=== PATIENT | female | born 1985 | race Caucasian/White ===

== ENCOUNTER 2016-09-21 14:00 | Emergency (ER) | payer MEDICAID ==
[~2016-09-21] VITALS: Ht 152.4 cm; Wt 91.6 kg
--- NOTE | 2016-09-21 14:04 | NUR ---
Patient ambulated to bed 03.
[2016-09-21 14:08] VITALS: BP 145/99
--- NOTE | 2016-09-21 14:20 | NUR ---
Dr. Funez evaluating patient at bedside.
[2016-09-21] MEDS ORDERED: NACL 0.9% 1,000 ML IV SCH (14:26)
[2016-09-21] MEDS ORDERED: ONDANSETRON 4 MG/2 ML VIAL IVP ONE (14:30)
[2016-09-21] MEDS ORDERED: MORPHINE SULFATE 4 MG/ML SYR IVP ONE (14:30)
--- NOTE | 2016-09-21 14:45 | NUR ---
PATIENT PRESENTS TO ED WITH C/O ABD PAIN X 1 WEEK, PT. ADMITTED TO [facility] 08/26/16 FOR ABD PAIN AND REFERRED TO [facility], PT. STATES THE PAIN GOT WORSE AND SHES NOT GOING TO [facility] UNTIL THIS SUNDAY; DENIES N/V/D; SKIN IS PINK/WARM/DRY; AAOX4 WITH EVEN AND STEADY GAIT; LUNGS CLEAR BL; HR EVEN AND REGULAR; PT DENIES ANY FEVER, CP, SOB, OR COUGH AT THIS TIME; PATIENT STATES PAIN OF 9/10 AT THIS TIME; VSS; PATIENT POSITIONED FOR COMFORT; HOB ELEVATED; BEDRAILS UP X2; BED DOWN. ER MD MADE AWARE OF PT STATUS.
--- NOTE | 2016-09-21 15:13 | NUR ---
AAO AMBULATES TO THE RESTROOM FOR URINE SAMPLE
--- NOTE | 2016-09-21 16:22 | NUR ---
Patient to CT via wheelchair per tech.
--- NOTE | 2016-09-21 16:22 | NUR ---
AAO TAKEN TO CT BY NAILER HAND VIA WHEEL CHAIR
--- NOTE | 2016-09-21 16:49 | NUR ---
AAO PT TAKEN TO CT BY BALL WORKER VIA WHEEL CHAIR
[2016-09-21 17:55] VITALS: BP 147/86
--- NOTE | 2016-09-21 17:55 | NUR ---
Patient discharged with v/s stable. Written and verbal after care instructions given and explained.Patient alert, oriented and verbalized understanding of instructions. Ambulatory with steady gait. All questions addressed prior to discharge. ID band removed. Patient advised to follow up with PMD. Rx of NORCO ZOFRAN given. Patient educated on indication of medication including possible reaction and side effects. Opportunity to ask questions provided and answered.
[2017-01-08] MEDS ORDERED: SIMVASTATIN20 M1 PO (11:31)
[2017-01-08] MEDS ORDERED: NIFEDIPINE30 M1 PO (11:31)
[2017-01-08] MEDS ORDERED: FLOMAX0.4 MG PO (11:31)
[2017-01-08] MEDS ORDERED: MIRAPEX0.25 MG PO (11:31)
[2017-01-08] MEDS ORDERED: MOBIC15 MG PO (11:31)
[2017-01-08] MEDS ORDERED: METFORMIN HCL500 MG PO (11:31)
[2017-01-08] MEDS ORDERED: GABAPENTIN300 M3 PO (11:31)
[2017-01-10] MEDS ORDERED: AMOXICILLIN500 MG PO (07:01)
[2017-01-10] MEDS ORDERED: BIAXIN500 MG PO (07:08)
[2017-01-10] MEDS ORDERED: PEPTO BISMOL PO ×2 (08:38→10:47)
[2017-01-10] MEDS ORDERED: TETRACYCLINE PO (08:41)
[2017-01-10] MEDS ORDERED: FLAGYL500 M1 PO (08:42)
[2017-01-10] MEDS ORDERED: OMEPRAZOLE20 M3 PO (08:43)
[2017-01-10] MEDS ORDERED: ELAVIL25 M1 PO (08:48)
[2017-01-10] MEDS ORDERED: ATORVASTATIN CA20 MG PO (08:48)
[2017-01-10] MEDS ORDERED: ACETAMINOPHEN325 M2 PO (08:56)
[2017-01-10] MEDS ORDERED: CULTURELLE10 Billion PO (08:56)
[2017-02-14] MEDS ORDERED: ATORVASTATIN CA20 MG PO (00:32)
[2017-02-14] MEDS ORDERED: ELAVIL25 M1 PO ×2 (00:32→00:36)
[2017-02-16] MEDS ORDERED: ACETAMINOPHEN325 M2 PO ×2 (11:39)
[2017-02-16] MEDS ORDERED: SIMETHICONE80 M2 PO (11:39)
[2017-02-16] MEDS ORDERED: BENTYL10 M1 PO (11:39)
[2017-02-16] MEDS ORDERED: ELAVIL25 M1 PO (11:39)
== END 2016-09-21 17:55 | disposition home or self-care (01) ==
LOC: MED 14:01
DX: R10.31 Right lower quadrant pain (principal); R11.2 Nausea with vomiting, unspecified; R50.9 Fever, unspecified; I10 Essential (primary) hypertension; Z88.6 Allergy status to analgesic agent
CPT/HCPCS: 36415; 74177; 80053; 81001; 81025; 83690; 84703; 85025; 96361; 96374; 96375; 99285; J2270; J2405; J7030; Q9967

== ENCOUNTER 2016-10-16 13:02 | Emergency (ER) | payer MEDICAID ==
[~2016-10-16] VITALS: Ht 152.4 cm; Wt 94.0 kg
[2016-10-16 13:58] VITALS: BP 132/84
--- NOTE | 2016-10-16 18:30 | NUR ---
31/F BIB SELF C/O LOWER ABDOMINAL PAIN X 1 WEEK; PT STATES TESTED POSITIVE FOR H. PYLORI IN AUGUST, AND HAS HAD INTERMITTENT ABDOMINAL PAIN SINCE THEN. SKIN IS PINK/WARM/DRY; AAOX4 WITH EVEN AND STEADY GAIT; LUNGS CLEAR BL; HR EVEN AND REGULAR; PT DENIES ANY FEVER, CP, SOB, OR COUGH AT THIS TIME; PATIENT STATES PAIN OF 9/10 AT THIS TIME; VSS; PATIENT POSITIONED FOR COMFORT; HOB ELEVATED; BEDRAILS UP X2; BED DOWN. ER MD MADE AWARE OF PT STATUS.
--- NOTE | 2016-10-16 19:10 | NUR ---
Pt report given to RENÉ BARNES. Transfer of care at this time.
[2016-10-16] MEDS ORDERED: NACL 0.9% 1,000 ML IV ONE (19:11)
[2016-10-16] MEDS ORDERED: ONDANSETRON 4 MG/2 ML VIAL IVP ONE (19:15)
[2016-10-16] MEDS ORDERED: MORPHINE SULFATE 4 MG/ML SYR IVP ONE (19:15)
[2016-10-16 19:51] LABS: BASOPHILS # (AUTO) 0.2 K/uL (0.00-0.22); BASOPHILS % (AUTO) 1.6 % (0.0-2.0); EOSINOPHILS # (AUTO) 0.2 K/uL (0-0.4); EOSINOPHILS % (AUTO) 1.6 % (0.0-4.0); HEMATOCRIT 40.3 % (36-48); HEMOGLOBIN 13.3 g/dL (12.0-16.0); LYMPHOCYTES # (AUTO) 3.2 K/uL (2.5-16.5); LYMPHOCYTES % (AUTO) 23.3 % (20.5-51.1); MEAN CORPUSCULAR HEMOGLOBIN 29 pg (27-31); MEAN CORPUSCULAR HGB CONC 33 g/dL (33-37); MEAN CORPUSCULAR VOLUME 87 fL (80-94); MONOCYTES # (AUTO) 1.1 K/uL (0.8-1.0); MONOCYTES % (AUTO) 8.1 % (1.7-9.3); NEUTROPHILS # (AUTO) 9.1 K/uL (1.8-7.7); NEUTROPHILS % (AUTO) 65.4 % (42.2-75.2); PLATELET COUNT (AUTO) 447 K/uL (140-450); RED BLOOD CELL COUNT(AUTO) 4.66 MIL/uL (4.20-5.40); RED CELL DISTRIBUTION WIDTH 13.4 % (11.6-13.7); WHITE BLOOD COUNT (AUTO) 13.8 K/uL (4.8-10.8)
--- NOTE | 2016-10-16 20:08 | NUR ---
PT TO CT
[2016-10-16 20:11] LABS: ALBUMIN 3.9 g/dL (3.4-5.0); ANION GAP 12.8 (8-16); CALCIUM 8.7 mg/dL (8.5-10.1); CARBON DIOXIDE 25.1 mmol/L (21-32); CREATININE 0.6 mg/dL (0.6-1.3); POTASSIUM 3.9 mmol/L (3.5-5.1); TOTAL BILIRUBIN 0.2 mg/dL (0.0-1.0); TOTAL PROTEIN, SERUM 7.8 g/dL (6.4-8.2)
--- NOTE | 2016-10-16 20:18 | NUR ---
PT RETURNED FROM CT
[2016-10-16 20:21] LABS: BILIRUBIN,URINE NEGATIVE (NEGATIVE); BLOOD, URINE 2+ (NEGATIVE); COLOR,URINE YELLOW (YELLOW); LEUKOCYTE ESTERASE ,URINE 2+ (NEGATIVE); NITRITE, URINE NEGATIVE (NEGATIVE); PROTEIN,URINE NEGATIVE (NEGATIVE); UGLUCOSE NEGATIVE (NEGATIVE); UROBILINOGEN,URINE 0.2 EU/dL (0.2 - 1)
[2016-10-16 20:24] LABS: APPEARANCE,URINE HAZY (CLEAR)
[2016-10-16 20:33] LABS: BACTERIA,URINE 1+ /HPF (None Seen); RBC,URINE 3-10 (FEW) /HPF (0-5); SQUAMOUS EPITHELIAL CELL,UR 4-10 (MOD) /LPF (0-3 (FEW)); YEAST,URINE Few /HPF (None Seen)
[2016-10-16] MEDS ORDERED: cefTRIAXone 1,000 MG VIAL ONE (20:48)
[2016-10-16] MEDS ORDERED: HYDROmorphone 1 MG/ML AMP IVP ONE (21:00)
--- NOTE | 2016-10-16 22:40 | NUR ---
Patient discharged with v/s stable. Written and verbal after care instructions given and explained. Patient alert, oriented and verbalized understanding of instructions. Ambulatory with steady gait. All questions addressed prior to discharge. ID band removed. Patient advised to follow up with PMD. Rx of CIPRO AND NORCO given. Patient educated on indication of medication including possible reaction and side effects. Opportunity to ask questions provided and answered. GIRLFRIEND AT BEDSIDE
[2016-10-16 22:47] VITALS: BP 125/90
== END 2016-10-16 22:40 | disposition home or self-care (01) ==
LOC: MED 13:02
DX: N39.0 Urinary tract infection, site not specified (principal); K21.9 Gastro-esophageal reflux disease without esophagitis; I10 Essential (primary) hypertension; Z88.6 Allergy status to analgesic agent; Z90.49 Acquired absence of other specified parts of digestive tract
CPT/HCPCS: 36415; 74176; 80053; 81001; 81025; 83690; 85025; 87086; 96361; 96365; 96375; 99285; J0696; J1170; J2270; J2405; J7030; J7060

== ENCOUNTER 2016-10-22 09:41 | Emergency (ER) | payer MEDICAID ==
[~2016-10-22] VITALS: Ht 152.4 cm; Wt 96.2 kg
[2016-10-22 09:46] VITALS: BP 141/81
--- NOTE | 2016-10-22 09:53 | NUR ---
Patient ambulated to bed 2. RN evaluating patient at bedside.
--- NOTE | 2016-10-22 09:55 | NUR ---
31F BIB SELF C/O RT ABDOMINAL PAIN W/ NAUSEA/VOMITING X 4 MONTHS INTERMITTENTLY, W/ PAIN INCREASING TODAY; PT C/O SHARP RT SIDED ABDOMINAL PAIN, RADIATES TO RT LOWER ABDMINAL, 04/08; PT STATES HAD 4 EPISODES OF VOMITING X TODAY; ABDOMEN SOFT, NON-TENDER, ACTIVE BOWEL SOUNDS X 4 QUADRANTS; A&OX4, BL LUNG SOUNDS CLEAR, RR EVEN/UNLABORED, SKIN IS WARM/DRY/INTACT AT THIS TIME. STEADY GAIT; PT RESTING IN BED W/ HOB ELEVATED AND IN LOWEST POSITION; POSITIONED FOR COMFORT; ER MD MADE AWARE OF STATUS. WILL CONTINUE TO MONITOR.
--- NOTE | 2016-10-22 09:57 | NUR ---
Dr. Holloway evaluating patient at bedside.
[2016-10-22] MEDS ORDERED: FAMOTIDINE 20 MG TAB PO ONE (10:05)
[2016-10-22] MEDS ORDERED: ALUMINUM HYD/MAG/SIMETHICONE 30 ML, BELLADONNA/PHENOBARBITAL 10 ML, LIDOCAINE VISCOUS 2... PO ONE (10:05)
[2016-10-22] MEDS ORDERED: ONDANSETRON 4 MG ODT PO ONE (10:05)
[2016-10-22] MEDS ORDERED: LIDOCAINE VISCOUS 2% 20 ML UDC ONE (10:14)
[2016-10-22] MEDS ORDERED: ALUMINUM HYD/MAG/SIMETHICONE 30 ML UDC ONE (10:14)
--- NOTE | 2016-10-22 10:16 | NUR ---
CALLED PHARMACY FOR NOT AVAILABLE IN [place]; PHARMACY TO CHECK OUT MEDICATION; WILL CALL BACK.
[2016-10-22] MEDS ORDERED: LIDOCAINE VISCOUS 2% 20 ML UDC PO ONE (10:25)
[2016-10-22] MEDS ORDERED: ALUMINUM HYD/MAG/SIMETHICONE 30 ML UDC PO ONE (10:25)
[2016-10-22 11:58] VITALS: BP 116/71
--- NOTE | 2016-10-22 11:58 | NUR ---
Patient discharged with v/s stable. Written and verbal after care instructions given and explained. Patient alert, oriented and verbalized understanding of instructions. Ambulatory with to car. All questions addressed prior to discharge. ID band removed. Patient advised to follow up with PMD. Rx of NORCO 5MG-325MG, PEPCID 40MG TAB, SULCRALFATE 1G TAB given. Patient educated on indication of medication including possible reaction and side effects. Opportunity to ask questions provided and answered.
[2017-01-08] MEDS ORDERED: METFORMIN HCL500 MG PO (11:31)
[2017-01-08] MEDS ORDERED: FLOMAX0.4 MG PO (11:31)
[2017-01-08] MEDS ORDERED: MIRAPEX0.25 MG PO (11:31)
[2017-01-08] MEDS ORDERED: NIFEDIPINE30 M1 PO (11:31)
[2017-01-08] MEDS ORDERED: MOBIC15 MG PO (11:31)
[2017-01-08] MEDS ORDERED: SIMVASTATIN20 M1 PO (11:31)
[2017-01-08] MEDS ORDERED: GABAPENTIN300 M3 PO (11:31)
[2017-01-10] MEDS ORDERED: AMOXICILLIN500 MG PO (07:01)
[2017-01-10] MEDS ORDERED: BIAXIN500 MG PO (07:08)
[2017-01-10] MEDS ORDERED: PEPTO BISMOL PO ×2 (08:38→10:47)
[2017-01-10] MEDS ORDERED: TETRACYCLINE PO (08:41)
[2017-01-10] MEDS ORDERED: FLAGYL500 M1 PO (08:42)
[2017-01-10] MEDS ORDERED: OMEPRAZOLE20 M3 PO (08:43)
[2017-01-10] MEDS ORDERED: ELAVIL25 M1 PO (08:48)
[2017-01-10] MEDS ORDERED: ATORVASTATIN CA20 MG PO (08:48)
[2017-01-10] MEDS ORDERED: ACETAMINOPHEN325 M2 PO (08:56)
[2017-01-10] MEDS ORDERED: CULTURELLE10 Billion PO (08:56)
[2017-02-14] MEDS ORDERED: ATORVASTATIN CA20 MG PO (00:32)
[2017-02-14] MEDS ORDERED: ELAVIL25 M1 PO ×2 (00:32→00:36)
[2017-02-16] MEDS ORDERED: ELAVIL25 M1 PO (11:39)
[2017-02-16] MEDS ORDERED: BENTYL10 M1 PO (11:39)
[2017-02-16] MEDS ORDERED: SIMETHICONE80 M2 PO (11:39)
[2017-02-16] MEDS ORDERED: ACETAMINOPHEN325 M2 PO ×2 (11:39)
== END 2016-10-22 11:58 | disposition home or self-care (01) ==
LOC: MED 09:42
DX: K21.9 Gastro-esophageal reflux disease without esophagitis (principal); G43.A0 Cyclical vomiting, in migraine, not intractable; I10 Essential (primary) hypertension; Z90.49 Acquired absence of other specified parts of digestive tract; Z88.6 Allergy status to analgesic agent
CPT/HCPCS: 36415; 80053; 80305; 81001; 81025; 83690; 85025; 87086; 99284; S0119

== ENCOUNTER 2016-12-02 14:24 | Emergency (ER) | payer MEDICAID ==
[~2016-12-02] VITALS: Ht 152.4 cm; Wt 90.7 kg
[2016-12-02 14:27] VITALS: BP 148/80
--- NOTE | 2016-12-02 18:15 | NUR ---
Patient ambulated to bed 5. RN evaluating patient at bedside.
--- NOTE | 2016-12-02 18:17 | NUR ---
31F BIB SELF C/O RT SIDED ABDOMINAL PAIN, SHARP, NON-RADIATING, 9/10 X 2 DAYS; PT STATES HAD 6 EPISODES OF VOMITTING TODAY, BUT DENIES DIARRHEA AT THIS TIME; ABDOMEN SOFT, NON-TENDER, ACTIVE BOWEL SOUNDS X 4 QUADRANTS; PT A&OX4, PERRLA, BL LUNG SOUNDS CLEAR, RR EVEN/UNLABORED, SKIN IS WARM/DRY/INTACT AT THIS TIME; PT RESTING IN BED W/ HOB ELEVATED AND IN LOWEST POSITION; POSITIONED FOR COMFORT; ER MD MADE AWARE OF STATUS. WILL CONTINUE TO MONITOR.
[2016-12-02] MEDS ORDERED: NACL 0.9% 1,000 ML IV SCH (18:22)
[2016-12-02] MEDS ORDERED: FAMOTIDINE 20 MG/2 ML VIAL IVP ONE (18:25)
[2016-12-02] MEDS ORDERED: ONDANSETRON 4 MG/2 ML VIAL IVP ONE (18:25)
[2016-12-02] MEDS ORDERED: HYDROmorphone 1 MG/ML AMP IVP ONE (18:40)
[2016-12-02 19:02] LABS: BASOPHILS # (AUTO) 0.1 K/uL (0.00-0.22); BASOPHILS % (AUTO) 1.4 % (0.0-2.0); EOSINOPHILS # (AUTO) 0.2 K/uL (0-0.4); EOSINOPHILS % (AUTO) 1.8 % (0.0-4.0); HEMATOCRIT 39.4 % (36-48); HEMOGLOBIN 12.7 g/dL (12.0-16.0); LYMPHOCYTES # (AUTO) 2.6 K/uL (2.5-16.5); LYMPHOCYTES % (AUTO) 24.9 % (20.5-51.1); MEAN CORPUSCULAR HEMOGLOBIN 28 pg (27-31); MEAN CORPUSCULAR HGB CONC 32 g/dL (33-37); MEAN CORPUSCULAR VOLUME 86 fL (80-94); MONOCYTES % (AUTO) 9.4 % (1.7-9.3); NEUTROPHILS # (AUTO) 6.4 K/uL (1.8-7.7); NEUTROPHILS % (AUTO) 62.5 % (42.2-75.2); PLATELET COUNT (AUTO) 410 K/uL (140-450); RED BLOOD CELL COUNT(AUTO) 4.56 MIL/uL (4.20-5.40); WHITE BLOOD COUNT (AUTO) 10.3 K/uL (4.8-10.8)
--- NOTE | 2016-12-02 19:05 | NUR ---
Pt report given to RENÉ HINES. Transfer of care at this time.
[2016-12-02 19:06] LABS: ALBUMIN 3.9 g/dL (3.4-5.0); ANION GAP 12.3 (8-16); CALCIUM 8.9 mg/dL (8.5-10.1); CARBON DIOXIDE 28.1 mmol/L (21-32); CREATININE 0.6 mg/dL (0.6-1.3); POTASSIUM 3.4 mmol/L (3.5-5.1); TOTAL BILIRUBIN 0.3 mg/dL (0.0-1.0); TOTAL PROTEIN, SERUM 7.8 g/dL (6.4-8.2)
--- NOTE | 2016-12-02 19:08 | NUR ---
Dr. Holloway evaluating patient at bedside.
--- NOTE | 2016-12-02 19:14 | NUR ---
Iam medeiros in [facility] - 12/02/[address] at [address] Holloway evaluating patient at bedside.
--- NOTE | 2016-12-02 19:18 | NUR ---
report received from chata bess
--- NOTE | 2016-12-02 19:25 | NUR ---
PT TO CT VIA WC IN STABLE CONDITION
--- NOTE | 2016-12-02 19:43 | NUR ---
PT RETURN FROM CT
--- NOTE | 2016-12-02 20:46 | NUR ---
PT RESTING COMFORTABLY AT THIS TIME.
[2016-12-02] MEDS ORDERED: LIDOCAINE VISCOUS 2% 20 ML UDC PO ONE (21:05)
[2016-12-02] MEDS ORDERED: ALUMINUM HYD/MAG/SIMETHICONE 30 ML UDC PO ONE (21:05)
[2016-12-02 21:48] VITALS: BP 138/79
--- NOTE | 2016-12-02 21:48 | NUR ---
Patient discharged with v/s stable. Written and verbal after care instructions given and explained. Patient alert, oriented and verbalized understanding of instructions. Ambulatory with steady gait. All questions addressed prior to discharge. ID band removed. Patient advised to follow up with PMD. Rx of NORCO AND PEPCID given. Patient educated on indication of medication including possible reaction and side effects. Opportunity to ask questions provided and answered.
== END 2016-12-02 21:48 | disposition home or self-care (01) ==
LOC: MED 14:24
DX: K91.5 Postcholecystectomy syndrome (principal); R10.9 Unspecified abdominal pain; K21.9 Gastro-esophageal reflux disease without esophagitis; I10 Essential (primary) hypertension
CPT/HCPCS: 36415; 74177; 80053; 81002; 81025; 82150; 83690; 85025; 86677; 96361; 96374; 96375; 99285; J1170; J2405; J3490; J7030; Q9967

== ENCOUNTER 2016-12-16 09:06 | Emergency (ER) | payer MEDICAID ==
[~2016-12-16] VITALS: Ht 152.4 cm; Wt 88.5 kg
[2016-12-16 09:13] VITALS: BP 126/79
--- NOTE | 2016-12-16 09:17 | NUR ---
Patient ambulated to bed 06.
--- NOTE | 2016-12-16 09:20 | NUR ---
31F BIB SELF C/O LOWER ABDOMINAL PAIN, SHARP, RADIATES TO VAGINA, 9/10 X 2 WEEKS; PT STATES HAS URINARY FREQUENCY, BURNING W/ VAGINAL SPOTTING OF BLOOD; ABDOMEN SOFT, NON-TENDER, ACTIVE BOWEL SOUNDS X 4 QUADRANTS; PT C/O 3 EPISODES OF NAUSEA/VOMITING, BUT DENIES DIARRHEA AT THIS TIME; PT NOTED W/ MILD EDEMA TO BL FEET X 2 DAYS; A&OX4, PERRLA, BL LUNG SOUNDS CLEAR, RR EVEN/UNLABORED, SKIN IS WARM/DRY/INTACT AT THIS TIME; STEADY GAIT; PT RESTING IN BED W/ HOB ELEVATED AND IN LOWEST POSITION; POSTIONED FOR COMFORT; ER MD MADE AWARE OF STATUS. WILL CONTINUE TO MONITOR.
--- NOTE | 2016-12-16 09:32 | NUR ---
ER MD DR. LEO EVALUATING PT AT BEDSIDE.
[2016-12-16] MEDS ORDERED: NACL 0.9% 1,000 ML IV ONE (09:40)
[2016-12-16] MEDS ORDERED: MORPHINE SULFATE 4 MG/ML SYR IVP ONE (09:40)
[2016-12-16] MEDS ORDERED: ONDANSETRON 4 MG/2 ML VIAL IVP ONE (09:40)
[2016-12-16 10:04] LABS: BASOPHILS # (AUTO) 0.2 K/uL (0.00-0.22); EOSINOPHILS # (AUTO) 0.4 K/uL (0-0.4); EOSINOPHILS % (AUTO) 2.9 % (0.0-4.0); HEMOGLOBIN 12.2 g/dL (12.0-16.0); LYMPHOCYTES # (AUTO) 2.7 K/uL (2.5-16.5); MEAN CORPUSCULAR HEMOGLOBIN 29 pg (27-31); MEAN CORPUSCULAR HGB CONC 33 g/dL (33-37); MEAN CORPUSCULAR VOLUME 86 fL (80-94); MONOCYTES # (AUTO) 0.7 K/uL (0.8-1.0); MONOCYTES % (AUTO) 5.5 % (1.7-9.3); NEUTROPHILS # (AUTO) 8.2 K/uL (1.8-7.7); NEUTROPHILS % (AUTO) 67.6 % (42.2-75.2); PLATELET COUNT (AUTO) 410 K/uL (140-450); RED BLOOD CELL COUNT(AUTO) 4.28 MIL/uL (4.20-5.40); RED CELL DISTRIBUTION WIDTH 13.4 % (11.6-13.7); WHITE BLOOD COUNT (AUTO) 12.2 K/uL (4.8-10.8)
[2016-12-16 10:06] LABS: APPEARANCE,URINE HAZY (CLEAR); BILIRUBIN,URINE NEGATIVE (NEGATIVE); BLOOD, URINE 2+ (NEGATIVE); COLOR,URINE YELLOW (YELLOW); LEUKOCYTE ESTERASE ,URINE TRACE (NEGATIVE); NITRITE, URINE NEGATIVE (NEGATIVE); PROTEIN,URINE NEGATIVE (NEGATIVE); UGLUCOSE NEGATIVE (NEGATIVE); UROBILINOGEN,URINE 0.2 EU/dL (0.2 - 1)
[2016-12-16 10:09] LABS: ANION GAP 13.9 (8-16); CALCIUM 8.8 mg/dL (8.5-10.1); CREATININE 0.6 mg/dL (0.6-1.3); POTASSIUM 3.9 mmol/L (3.5-5.1)
[2016-12-16 10:15] LABS: ALBUMIN 3.5 g/dL (3.4-5.0); TOTAL BILIRUBIN 0.1 mg/dL (0.0-1.0); TOTAL PROTEIN, SERUM 7.4 g/dL (6.4-8.2)
[2016-12-16 10:21] LABS: BACTERIA,URINE 1+ /HPF (None Seen); MUCUS,URINE 2+ /LPF (None Seen); YEAST,URINE Moderate /HPF (None Seen)
--- NOTE | 2016-12-16 10:30 | NUR ---
Patient appears to be resting comfortably in bed. Vital Signs within normal limits. Respirations even and unlabored. NO SIGNS OF ACUTE DISTRESS AT THIS TIME; WILL CONTINUE TO MONITOR.
[2016-12-16] MEDS ORDERED: cefTRIAXone 250 MG in LIDOCAINE 1% ED 0.9 ML IM ONE (10:35)
--- NOTE | 2016-12-16 11:10 | NUR ---
IV removed, catheter intact and site benign. Applied folded 4x4 gauze and tape to stop bleeding. PT TOELRATED PROCEDURE WELL.
[2016-12-16 11:12] VITALS: BP 125/78
--- NOTE | 2016-12-16 11:12 | NUR ---
Patient discharged with v/s stable. Written and verbal after care instructions given and explained. Patient alert, oriented and verbalized understanding of instructions. Ambulatory with to car. All questions addressed prior to discharge. ID band removed. Patient advised to follow up with PMD. Rx of FLUCONAZOLE 150MG TAB, METRONIDAZOLE 500MG TAB, NORCO 5MG-325MG TAB & DOXYCYCLINE HYCLATE 100MG TAB given. Patient educated on indication of medication including possible reaction and side effects. Opportunity to ask questions provided and answered.
[2016-12-19 06:49] LABS: CHLAMYDIA TRACHOMATIS AMP DNA Negative (Negative)
== END 2016-12-16 11:12 | disposition home or self-care (01) ==
LOC: MED 09:06
DX: B37.3 Candidiasis of vulva and vagina (principal); N73.9 Female pelvic inflammatory disease, unspecified; K21.9 Gastro-esophageal reflux disease without esophagitis; I10 Essential (primary) hypertension; Z88.8 Allergy status to other drugs, medicaments and biological substances; Z90.49 Acquired absence of other specified parts of digestive tract; Z90.89 Acquired absence of other organs
CPT/HCPCS: 36415; 80053; 81001; 81025; 82150; 83690; 84703; 85025; 87086; 87491; 96361; 96372; 96374; 96375; 99284; J0696; J2001; J2270; J2405; J7030

== ENCOUNTER 2016-12-26 12:10 | Emergency (ER) | payer MEDICAID ==
[~2016-12-26] VITALS: Ht 152.4 cm; Wt 86.2 kg
[2016-12-26 12:53] VITALS: BP 162/107
--- NOTE | 2016-12-26 15:08 | NUR ---
Patient to OF.
--- NOTE | 2016-12-26 15:10 | NUR ---
PATIENT PRESENTS TO ED WITH C/O DIFFUSE ABDOMINAL PAIN . PT STATES THE PAIN STARTED 10 DAYS AGO, SHORTLY AFTER BEING SEEN IN ER FOR SAME S/SX . DENIES N/V/D; SKIN IS PINK/WARM/DRY; AAOX4 WITH EVEN AND STEADY GAIT; LUNGS CLEAR BL; HR EVEN AND REGULAR; PT DENIES ANY FEVER, CP, SOB, OR COUGH AT THIS TIME; PATIENT STATES PAIN OF 9/10 AT THIS TIME; VSS; PT IN OVERFLOW. ER MD MADE AWARE OF PT STATUS.
[2016-12-26] MEDS ORDERED: HYDROcodone/APAP 5/325 MG 1 TAB TAB PO ONE (15:20)
[2016-12-26] MEDS ORDERED: MORPHINE SULFATE 4 MG/ML SYR IM ONE (19:10)
[2016-12-26 19:50] VITALS: BP 138/95
--- NOTE | 2016-12-26 19:50 | NUR ---
Patient discharged with v/s stable. Written and verbal after care instructions given and explained. Patient alert, oriented and verbalized understanding of instructions. Ambulatory with steady gait. All questions addressed prior to discharge. ID band removed. Patient advised to follow up with PMD OR RETURN TO ER IF CONDITION WORSENS. Rx of NORCO 5MG given. Patient educated on indication of medication including possible reaction and side effects. Opportunity to ask questions provided and answered.
[2017-01-08] MEDS ORDERED: NIFEDIPINE30 M1 PO (11:31)
[2017-01-08] MEDS ORDERED: GABAPENTIN300 M3 PO (11:31)
[2017-01-08] MEDS ORDERED: SIMVASTATIN20 M1 PO (11:31)
[2017-01-08] MEDS ORDERED: MIRAPEX0.25 MG PO (11:31)
[2017-01-08] MEDS ORDERED: FLOMAX0.4 MG PO (11:31)
[2017-01-08] MEDS ORDERED: METFORMIN HCL500 MG PO (11:31)
[2017-01-08] MEDS ORDERED: MOBIC15 MG PO (11:31)
[2017-01-10] MEDS ORDERED: AMOXICILLIN500 MG PO (07:01)
[2017-01-10] MEDS ORDERED: BIAXIN500 MG PO (07:08)
[2017-01-10] MEDS ORDERED: PEPTO BISMOL PO ×2 (08:38→10:47)
[2017-01-10] MEDS ORDERED: TETRACYCLINE PO (08:41)
[2017-01-10] MEDS ORDERED: FLAGYL500 M1 PO (08:42)
[2017-01-10] MEDS ORDERED: OMEPRAZOLE20 M3 PO (08:43)
[2017-01-10] MEDS ORDERED: ATORVASTATIN CA20 MG PO (08:48)
[2017-01-10] MEDS ORDERED: ELAVIL25 M1 PO (08:48)
[2017-01-10] MEDS ORDERED: CULTURELLE10 Billion PO (08:56)
[2017-01-10] MEDS ORDERED: ACETAMINOPHEN325 M2 PO (08:56)
[2017-02-14] MEDS ORDERED: ATORVASTATIN CA20 MG PO (00:32)
[2017-02-14] MEDS ORDERED: ELAVIL25 M1 PO ×2 (00:32→00:36)
[2017-02-16] MEDS ORDERED: BENTYL10 M1 PO (11:39)
[2017-02-16] MEDS ORDERED: ACETAMINOPHEN325 M2 PO ×2 (11:39)
[2017-02-16] MEDS ORDERED: ELAVIL25 M1 PO (11:39)
[2017-02-16] MEDS ORDERED: SIMETHICONE80 M2 PO (11:39)
== END 2016-12-26 19:30 | disposition home or self-care (01) ==
LOC: MED 12:10
DX: G89.29 Other chronic pain (principal); R10.10 Upper abdominal pain, unspecified; R07.89 Other chest pain; R11.2 Nausea with vomiting, unspecified; Z88.6 Allergy status to analgesic agent; Z90.49 Acquired absence of other specified parts of digestive tract
CPT/HCPCS: 36415; 71020; 80048; 80076; 81002; 81025; 83690; 84484; 85025; 93005; 96372; 99285; J2270

== ENCOUNTER 2017-01-08 08:48 | Inpatient (IN) | payer MEDICAID ==
[~2017-01-08] VITALS: Ht 152.4 cm; Wt 86.2 kg
[2017-01-08 08:55] VITALS: BP 167/79
--- NOTE | 2017-01-08 09:00 | NUR ---
Patient ambulated to bed 5.
--- NOTE | 2017-01-08 09:20 | NUR ---
PATIENT PRESENTS TO ED WITH LOWER ABD PAIN RADIATING UP TO LEFT SIDE OF CHEST AND OVER SHOULDER . PT STATES . DENIES DIARRHEA SKIN IS PINK/WARM/DRY; AAOX4 WITH EVEN AND STEADY GAIT; LUNGS CLEAR BL; HR EVEN AND REGULAR; PT DENIES ANY FEVER, CP, SOB, OR COUGH AT THIS TIME; PATIENT STATES PAIN OF 10/10 AT THIS TIME; VSS; PATIENT POSITIONED FOR COMFORT; HOB ELEVATED; BEDRAILS UP X2; BED DOWN. ER MD MADE AWARE OF PT STATUS.
--- NOTE | 2017-01-08 09:30 | NUR ---
Patient being evaluated by Dr. Cuevas at bedside.
[2017-01-08] MEDS ORDERED: ONDANSETRON 4 MG/2 ML VIAL IVP ONE ×2 (09:35→12:15)
[2017-01-08] MEDS ORDERED: fentaNYL 0.05 MG/ML VIAL IVP ONE (09:35)
[2017-01-08] MEDS ORDERED: NACL 0.9% 2,000 ML IV ONE (09:35)
--- NOTE | 2017-01-08 09:45 | NUR ---
X-Ray at bedside.
--- NOTE | 2017-01-08 09:45 | NUR ---
LAB AT BEDSIDE
[2017-01-08 09:59] LABS: BASOPHILS # (AUTO) 0.5 K/uL (0.00-0.22); BASOPHILS % (AUTO) 3.3 % (0.0-2.0); EOSINOPHILS # (AUTO) 0.2 K/uL (0-0.4); EOSINOPHILS % (AUTO) 1.6 % (0.0-4.0); HEMATOCRIT 38.5 % (36-48); HEMOGLOBIN 12.8 g/dL (12.0-16.0); LYMPHOCYTES # (AUTO) 2.8 K/uL (2.5-16.5); LYMPHOCYTES % (AUTO) 19.1 % (20.5-51.1); MEAN CORPUSCULAR HEMOGLOBIN 28 pg (27-31); MEAN CORPUSCULAR HGB CONC 33 g/dL (33-37); MEAN CORPUSCULAR VOLUME 85 fL (80-94); MONOCYTES # (AUTO) 0.9 K/uL (0.8-1.0); MONOCYTES % (AUTO) 6.5 % (1.7-9.3); NEUTROPHILS # (AUTO) 10.1 K/uL (1.8-7.7); NEUTROPHILS % (AUTO) 69.5 % (42.2-75.2); PLATELET COUNT (AUTO) 420 K/uL (140-450); RED BLOOD CELL COUNT(AUTO) 4.51 MIL/uL (4.20-5.40); RED CELL DISTRIBUTION WIDTH 13.6 % (11.6-13.7)
[2017-01-08 10:08] LABS: ANION GAP 17.1 (8-16); CALCIUM 8.6 mg/dL (8.5-10.1); CARBON DIOXIDE 21.8 mmol/L (21-32); CREATININE 0.6 mg/dL (0.6-1.3); POTASSIUM 3.9 mmol/L (3.5-5.1)
[2017-01-08 10:14] LABS: ALBUMIN 3.8 g/dL (3.4-5.0); TOTAL BILIRUBIN 0.2 mg/dL (0.0-1.0); TOTAL PROTEIN, SERUM 7.8 g/dL (6.4-8.2); WHITE BLOOD COUNT (AUTO) 14.5 K/uL (4.8-10.8)
[2017-01-08 10:20] LABS: PROTHROMBIN TIME 9.8 secs (10.8-13.4)
[2017-01-08 10:21] LABS: LACTIC ACID 1.8 mmol/L (0.4-2.0)
[2017-01-08] MEDS ORDERED: metroNIDAZOLE 500 MG/NS PREMIX 100 ML IV ONE (10:45)
[2017-01-08] MEDS ORDERED: PIPERACILLIN/TAZOBACTAM 3.375 GM in DEXTROSE 5% 50 ML IV ONE (10:45)
[2017-01-08] MEDS: NACL 0.9% 1,000 ML IV SCH ×2 (10:51→23:25)
[2017-01-08] MEDS ORDERED: HYDROcodone/APAP 7.5/325 MG 1 TAB PO PRN (10:55)
[2017-01-08] MEDS ORDERED: ONDANSETRON 4 MG/2 ML VIAL IM/IVP PRN (10:55)
[2017-01-08] MEDS ORDERED: ACETAMINOPHEN 325 MG TAB PO PRN (10:55)
[2017-01-08] MEDS ORDERED: DOCUSATE SODIUM 100 MG GELCAP PO PRN (10:55)
--- NOTE | 2017-01-08 11:00 | NUR ---
PT TO CT VIA WHEEL CHAIR
[2017-01-08 11:22] LABS: APPEARANCE,URINE HAZY (CLEAR); BILIRUBIN,URINE NEGATIVE (NEGATIVE); BLOOD, URINE 2+ (NEGATIVE); COLOR,URINE YELLOW (YELLOW); LEUKOCYTE ESTERASE ,URINE 3+ (NEGATIVE); NITRITE, URINE NEGATIVE (NEGATIVE); PROTEIN,URINE NEGATIVE (NEGATIVE); UGLUCOSE NEGATIVE (NEGATIVE); UROBILINOGEN,URINE 0.2 EU/dL (0.2 - 1)
[2017-01-08 11:31] LABS: RBC,URINE 3-10 (FEW) /HPF (0-5)
[2017-01-08] MEDS ORDERED: TAMS0.4C96 PO (11:31)
[2017-01-08] MEDS ORDERED: MELO15TA11 PO (11:31)
[2017-01-08] MEDS ORDERED: NIFE-144 PO (11:31)
[2017-01-08] MEDS ORDERED: [UNRECOGNIZED DRUG - CODE] PO (11:31)
[2017-01-08] MEDS ORDERED: GABA-638 PO (11:31)
[2017-01-08] MEDS ORDERED: SIMV20TA6 PO (11:31)
[2017-01-08] MEDS ORDERED: METF500T4 PO (11:31)
[2017-01-08 11:32] LABS: BACTERIA,URINE 2+ /HPF (None Seen); WBC,URINE 60-80 /HPF (0-5)
[2017-01-08 11:36] LABS: CHOL/HDL RATIO 8.4 (1-4.5); FREE T4 (FREE THYROXINE) 0.88 ng/dL (0.76-1.46); MAGNESIUM 2.3 mg/dL (1.8-2.4); PHOSPHORUS 2.4 mg/dL (2.5-4.9); THYROID STIMULATING HORMONE 0.53 uIU/mL (0.34-3.76)
[2017-01-08] MEDS ORDERED: PIPERACILLIN/TAZOBACTAM 3.375 GM VIAL IV ONE (12:11)
[2017-01-08] MEDS ORDERED: HYDROmorphone 1 MG/ML AMP IVP ONE (12:15)
--- NOTE | 2017-01-08 12:34 | NUR ---
[facility]A---MEDICATED WILL CONTINUE TO OBSERVE FOR PAIN CONTROL
--- NOTE | 2017-01-08 14:14 | NUR ---
Pt transferred to Tele via [facility] room 104-A report given to Ambar MERRITT
[2017-01-08] MEDS ORDERED: SODIUM PHOS / POTASSIUM PHOS 1 PKT PDR PO SCH (14:44)
--- NOTE | 2017-01-08 15:00 | NUR ---
RECEIVED PT ON FLOOR VIA GURLEDY, PT IS A/OX4, SKIN IS INTACT, IV ON THE LEFT HAND, PATENT, INTACT, INFUSING WELL, NO S/S OF RESPIRATORY DISTRESS OR DISCOMFORT NOTED, DISCUSSED PLAN OF CARE WITH PT, PT VERBALIZED UNDERSTANDING, CALL LIGHT WITHIN REACH, WILL CONTINUE TO MONITOR. DAUGHTER IS AT BEDSIDE.
--- NOTE | 2017-01-08 17:00 | NUR ---
PT RESTING IN BED, CALL LIGHT IS WITHIN REACH, ALL NEEDS MET.
[2017-01-08] MEDS: MORPHINE SULFATE 2 MG/ML SYR IVP PRN ×2 (17:14→21:08)
[2017-01-08] MEDS: DICYCLOMINE 10 MG CAP PO SCH ×2 (17:15→20:25)
[2017-01-08] MEDS ORDERED: METOPROLOL 25 MG TAB PO SCH (17:45)
[2017-01-08] MEDS ORDERED: LISINOPRIL 5 MG TAB PO SCH (17:45)
[2017-01-08] MEDS: PIPER/TAZO 3.375GM/D5W PREMIX 50 ML IV SCH ×2 (18:44→23:25)
--- NOTE | 2017-01-08 19:15 | NUR ---
PT ENDORSED TO RENÉ DIANA. FOR CONTINUITY OF CARE, PT STABLE AT THIS TIME.
--- NOTE | 2017-01-08 19:30 | NUR ---
RECEIVED REPORT FROM GEOVANNY MERRITT AT BEDSIDE. PT IS ALERT AWAKE ORIENTED X4. INITIAL ASSESSMENT DONE. NO S/S OF RESPIRATORY DISTRESS OR SOB NOTED. NO C/O PAIN OR ANY DISCOMFORT AT THIS TIME. PLAN OF CARE REVIEWED TO PT AND VERBALIZED UNDERSTANDING. CALL LIGHT WITHIN REACH. WILL CONTINUE TO MONITOR.
[2017-01-08 20:00] VITALS: BP 133/84
[2017-01-08] MEDS: metroNIDAZOLE 500 MG/NS PREMIX 100 ML IV SCH (20:25)
[2017-01-08] MEDS: DOCUSATE SODIUM 100 MG GELCAP PO SCH (20:25)
[2017-01-08] MEDS: LACTOBACILLUS RHAMNOSUS GG 1 EACH CAP PO SCH (20:26)
[2017-01-08] MEDS: ATORVASTATIN 20 MG TAB PO SCH (20:26)
[2017-01-08] MEDS ORDERED: ATORVASTATIN 20 MG TAB PO SCH (21:00)
[2017-01-08 23:29] LABS: AMPHETAMINE, URINE NEG. ng/ml (NEG <=1000); BARBITURATE, URINE NEG. ng/ml (NEG <=200); BENZODIAZEPINE, URINE NEG. ng/mL (NEG <=200); CANNABINOID, URINE POS. ng/mL (NEG <=50); COCAINE, URINE NEG. ng/mL (NEG <=300); OPIATE, URINE NEG. ng/mL (NEG <=2000); PHENCYCLIDINE SCREEN,URINE NEG. ng/mL (NEG <=25)
[2017-01-09] VITALS: BP 127/81
[2017-01-09] MEDS: MORPHINE SULFATE 2 MG/ML SYR IVP PRN ×3 (00:14→09:42)
--- NOTE | 2017-01-09 00:40 | NUR ---
PT IS SLEEPING RIGHT NOW BUT EASILY AROUSABLE. NO S/S OF ANY DISCOMFORT AT THIS TIME. ALL NEEDS ARE ATTENDED. CALL LIGHT WITHIN REACH. WILL CONTINUE TO MONITOR.
[2017-01-09 04:00] VITALS: BP 137/86
[2017-01-09] MEDS: metroNIDAZOLE 500 MG/NS PREMIX 100 ML IV SCH (04:32)
--- NOTE | 2017-01-09 05:00 | NUR ---
AM CARE DONE BY HERSELF. BED LINEN CHANGED. INSTRUCTED PT TO REPOSITION. KEPT CLEAN AND DRY. CALL LIGHT WITHIN REACH. WILL CONTINUE TO MONITOR.
[2017-01-09] MEDS: PIPER/TAZO 3.375GM/D5W PREMIX 50 ML IV SCH ×2 (05:18→20:59)
[2017-01-09 06:53] LABS: BASOPHILS # (AUTO) 0.2 K/uL (0.00-0.22); BASOPHILS % (AUTO) 1.8 % (0.0-2.0); EOSINOPHILS # (AUTO) 0.3 K/uL (0-0.4); EOSINOPHILS % (AUTO) 2.5 % (0.0-4.0); HEMOGLOBIN 11.3 g/dL (12.0-16.0); LYMPHOCYTES # (AUTO) 2.6 K/uL (2.5-16.5); LYMPHOCYTES % (AUTO) 24.4 % (20.5-51.1); MEAN CORPUSCULAR HEMOGLOBIN 29 pg (27-31); MEAN CORPUSCULAR HGB CONC 33 g/dL (33-37); MEAN CORPUSCULAR VOLUME 86 fL (80-94); MONOCYTES # (AUTO) 0.7 K/uL (0.8-1.0); MONOCYTES % (AUTO) 6.5 % (1.7-9.3); NEUTROPHILS % (AUTO) 64.8 % (42.2-75.2); PLATELET COUNT (AUTO) 359 K/uL (140-450); RED BLOOD CELL COUNT(AUTO) 3.93 MIL/uL (4.20-5.40); RED CELL DISTRIBUTION WIDTH 13.7 % (11.6-13.7); WHITE BLOOD COUNT (AUTO) 10.8 K/uL (4.8-10.8)
[2017-01-09 07:26] LABS: ANION GAP 14.5 (8-16); CALCIUM 8.4 mg/dL (8.5-10.1); CARBON DIOXIDE 24.4 mmol/L (21-32); CREATININE 0.6 mg/dL (0.6-1.3); POTASSIUM 3.9 mmol/L (3.5-5.1)
--- NOTE | 2017-01-09 07:30 | NUR ---
PT HAS NO S/S OF ANY DISCOMFORT. PLAN OF CARE ENDORSE TO GEOVANNY MERRITT AT BEDSIDE FOR CONTINUITY OF CARE.
--- NOTE | 2017-01-09 07:35 | NUR ---
RECEIVED REPORT FROM RENÉ DIANA. PT IS A/OX4, AMBULATORY, SKIN IS INTACT, IV IS PATENT, INTACT FLUSHING WELL, NO S/S OF RESPIRATORY DISTRESS OR DISCOMFORT NOTED, DISCUSSED PLAN OF CARE WITH PT, PT VERBALIZED UNDERSTANDING, SAFETY/FALL PRECAUTIONS ARE IN PLACE, CALL LIGHT IS WITHIN REACH, WILL CONTINUE TO MONITOR.
[2017-01-09 07:51] LABS: MAGNESIUM 2.1 mg/dL (1.8-2.4); PHOSPHORUS 3.8 mg/dL (2.5-4.9)
[2017-01-09 08:00] VITALS: BP 115/65
[2017-01-09] MEDS ORDERED: METOPROLOL 25 MG TAB PO SCH ×2 (09:00)
[2017-01-09] MEDS ORDERED: LISINOPRIL 5 MG TAB PO SCH (09:00)
--- NOTE | 2017-01-09 09:18 | NUR ---
PATIENT HAS BEEN SCREENED AND CATEGORIZED MODERATE NUTRITION RISK. PATIENT WILL BE SEEN WITHIN 3-5 DAYS OF ADMISSION. 01/10/17-01/12/[address]
[2017-01-09 09:25] LABS: T4 (THYROXINE) 6.8 ug/dL (4.5-12.0)
--- NOTE | 2017-01-09 09:40 | NUR ---
PT RESTING IN BED AT THIS TIME, CALL LIGHT WITHIN REACH, WILL CONTINUE TO MONITOR.
[2017-01-09] MEDS: ECOTRIN 81 MG TABEC PO SCH (09:43)
[2017-01-09] MEDS: PANTOPRAZOLE 40 MG INJ VIAL IVP SCH ×2 (09:43→20:59)
[2017-01-09] MEDS: DICYCLOMINE 10 MG CAP PO SCH ×2 (09:44→21:19)
[2017-01-09] MEDS: LACTOBACILLUS RHAMNOSUS GG 1 EACH CAP PO SCH ×2 (09:44→21:18)
[2017-01-09] MEDS: DOCUSATE SODIUM 100 MG GELCAP PO SCH ×2 (09:44→21:18)
[2017-01-09] MEDS: NACL 0.9% 1,000 ML IV SCH ×2 (09:46→20:59)
--- NOTE | 2017-01-09 10:29 | NUR ---
CM NOTE PER CARDIOPULMONARY SPECIALIST CARLA, REVIEWS SHOULD GO TO BOTH [facility] AND [facility]. FA[facility]ED [facility]ITIAL REVIEW TO [facility] [phone] [phone] [place] [phone]
--- NOTE | 2017-01-09 10:30 | NUR ---
PT OFF UNIT TO HAVE EGD DONE, CONSENT SIGNED, PT LEFT IN STABLE CONDITION.
[2017-01-09] MEDS ORDERED: MIDAZOLAM 2 MG/2 ML VIAL ONE ×2 (10:31)
[2017-01-09] MEDS ORDERED: fentaNYL 0.05 MG/ML VIAL ONE (10:31)
[2017-01-09] MEDS ORDERED: diphenhydrAMINE 50 MG/ML VIAL ONE (10:32)
[2017-01-09] MEDS ORDERED: DIAZEPAM PFS 10 MG/2 ML SYR ONE (10:32)
[2017-01-09] MEDS ORDERED: MIDAZOLAM 2 MG/2 ML VIAL IVP ONE (11:10)
[2017-01-09] MEDS ORDERED: diphenhydrAMINE 50 MG/ML VIAL IVP ONE (11:10)
[2017-01-09] MEDS ORDERED: fentaNYL 0.05 MG/ML VIAL IVP ONE (11:10)
--- NOTE | 2017-01-09 11:14 | NUR ---
PT RETURNED FROM EGD, PT STABLE AT THIS TIME.
[2017-01-09 12:00] VITALS: BP 113/57
[2017-01-09] MEDS ORDERED: KETOROLAC 30 MG/ML VIAL IM SCH (12:00)
--- NOTE | 2017-01-09 12:30 | NUR ---
PT SLEEPING IN BED AT THIS TIME, FRIEND IS AT BEDSIDE.
[2017-01-09] MEDS: SENNA 8.6 MG TAB PO SCH ×2 (14:08→17:13)
--- NOTE | 2017-01-09 14:25 | NUR ---
PT RESTING IN BED, FRIEND IS AT BEDSIDE, CALL LIGHT WITHIN REACH.
[2017-01-09 16:00] VITALS: BP 126/76
--- NOTE | 2017-01-09 16:30 | NUR ---
PT RESTING IN BED, NO S/S OF RESPIRATORY DISTRESS OR DISCOMFORT NOTED, CALL LIGHT WITHIN REACH.
[2017-01-09] MEDS: traMADol 50 MG TAB PO PRN (17:56)
--- NOTE | 2017-01-09 19:30 | NUR ---
PT ENDORSED TO SONDRA VACA FOR CONTINUITY OF CARE, PT STABLE AT THIS TIME.
--- NOTE | 2017-01-09 19:31 | NUR ---
RECD. RESTING IN BED, AWAKE, A/OX4. RESPIRATION EVEN AND UNLABORED. IV NS AT 60 ML/HR INFUSING, LEFT HAND G 20. STATED STILL WITH ON AND OFF ABDOMINAL PAIN, 08/08 AT THIS TIME. WILL MEDICATE ORDERED. PLAN OF CARE FOR THE SHIFT DISCUSSED. VERBALIZED UNDERSTANDING. GIRLFRIEND AT BEDSIDE.
--- NOTE | 2017-01-09 19:33 | NUR ---
Patient's Plan of Care was discussed and reviewed with DANCING TEACHER: KIM
[2017-01-09 20:00] VITALS: BP 122/68
[2017-01-09] MEDS ORDERED: KETOROLAC 30 MG/ML VIAL IVP PRN (20:00)
[2017-01-09] MEDS ORDERED: AMITRIPTYLINE 25 MG TAB PO SCH (21:00)
[2017-01-09] MEDS: ATORVASTATIN 20 MG TAB PO SCH (21:18)
--- NOTE | 2017-01-09 21:18 | NUR ---
DUE PO MEDICATIONS GIVEN. WATCHING TV.
[2017-01-09] MEDS ORDERED: ZOLPIDEM 5 MG TAB PO ONE (22:50)
--- NOTE | 2017-01-09 23:00 | NUR ---
STILL AWAKE, WATCHING TV.
[2017-01-09] MEDS ORDERED: diphenhydrAMINE 50 MG CAP PO PRN (23:45)
[2017-01-10] VITALS: BP 113/85
--- NOTE | 2017-01-10 00:42 | NUR ---
COMPLAINT OF UNABLE TO SLEEP AND FEELINGS OF ITCHINESS, SCRATCHING HER NECK AND ARMS. MEDICATED WITH AMBIEN AND BENADRYL 50 MG. PO ORDERED.
--- NOTE | 2017-01-10 01:45 | NUR ---
SLEEPING COMFORTABLY IN BED.
[2017-01-10] MEDS: PIPER/TAZO 3.375GM/D5W PREMIX 50 ML IV SCH (05:25)
[2017-01-10] MEDS: NACL 0.9% 1,000 ML IV SCH (05:29)
--- NOTE | 2017-01-10 06:45 | NUR ---
ABLE TO SLEPT WELL. CONDITION REMAIN STABLE. WILL ENDORSE TO AM NURSE FOR CONTINUITY OF CARE.
[2017-01-10 06:51] LABS: BASOPHILS # (AUTO) 0.2 K/uL (0.00-0.22); BASOPHILS % (AUTO) 2.1 % (0.0-2.0); EOSINOPHILS # (AUTO) 0.2 K/uL (0-0.4); HEMOGLOBIN 11.3 g/dL (12.0-16.0); LYMPHOCYTES # (AUTO) 2.3 K/uL (2.5-16.5); LYMPHOCYTES % (AUTO) 21.9 % (20.5-51.1); MEAN CORPUSCULAR HEMOGLOBIN 28 pg (27-31); MEAN CORPUSCULAR HGB CONC 32 g/dL (33-37); MEAN CORPUSCULAR VOLUME 87 fL (80-94); MONOCYTES # (AUTO) 0.8 K/uL (0.8-1.0); MONOCYTES % (AUTO) 7.7 % (1.7-9.3); NEUTROPHILS % (AUTO) 66.3 % (42.2-75.2); PLATELET COUNT (AUTO) 353 K/uL (140-450); RED BLOOD CELL COUNT(AUTO) 4.02 MIL/uL (4.20-5.40); RED CELL DISTRIBUTION WIDTH 13.7 % (11.6-13.7); WHITE BLOOD COUNT (AUTO) 10.5 K/uL (4.8-10.8)
[2017-01-10 06:52] LABS: ANION GAP 12.6 (8-16); CALCIUM 8.5 mg/dL (8.5-10.1); CREATININE 0.6 mg/dL (0.6-1.3); POTASSIUM 3.6 mmol/L (3.5-5.1)
[2017-01-10] MEDS ORDERED: AMOX500C25 PO (07:01)
[2017-01-10] MEDS ORDERED: CLAR500T3 PO (07:08)
[2017-01-10 07:09] LABS: PHOSPHORUS 4.2 mg/dL (2.5-4.9)
--- NOTE | 2017-01-10 07:20 | NUR ---
RECEIVED PT SITTING AT THE SIDE OF THE BED. AWAKE, ALERT, ORIENTEDX4. NO SOB NOTED. DENIES ANY PAIN OR DISCOMFORT AT THIS TIME. PT AMBULATORY GOING TO THE BATHROOM. POSITIVE BOWEL SOUNDS NOTED ON FOUR QUADRANTS. SAFETY PRECAUTION IN PLACE. CALL LIGHT WITHIN REACH.
[2017-01-10 08:00] VITALS: BP 105/66
--- NOTE | 2017-01-10 08:17 | NUR ---
CM NOTE FAXED CONCURRENT REVIEW TO [facility] [phone] PH [phone] [phone] PH [place] [phone]
[2017-01-10] MEDS ORDERED: PEP15L PO ×2 (08:38→10:47)
[2017-01-10] MEDS ORDERED: [UNRECOGNIZED DRUG - CODE] PO (08:41)
[2017-01-10] MEDS ORDERED: METR500T1 PO (08:42)
[2017-01-10] MEDS ORDERED: OMEP20TC10 PO (08:43)
[2017-01-10] MEDS ORDERED: ELA25 PO (08:48)
[2017-01-10] MEDS ORDERED: ATOR20TA40 PO (08:48)
[2017-01-10] MEDS ORDERED: LACT10CA PO (08:56)
[2017-01-10] MEDS ORDERED: ACET-1182 PO (08:56)
[2017-01-10] MEDS: LACTOBACILLUS RHAMNOSUS GG 1 EACH CAP PO SCH (09:20)
[2017-01-10] MEDS: traMADol 50 MG TAB PO PRN (09:22)
[2017-01-10] MEDS: ECOTRIN 81 MG TABEC PO SCH (09:22)
[2017-01-10] MEDS: PANTOPRAZOLE 40 MG INJ VIAL IVP SCH (09:22)
[2017-01-10] MEDS: SENNA 8.6 MG TAB PO SCH (09:22)
[2017-01-10] MEDS: DOCUSATE SODIUM 100 MG GELCAP PO SCH (09:22)
[2017-01-10] MEDS: DICYCLOMINE 10 MG CAP PO SCH (09:23)
[2017-01-10 12:00] VITALS: BP 115/76
--- NOTE | 2017-01-10 12:30 | NUR ---
DISCHARGE INSTRUCTIONS AND HEALTH TEACHINGS GIVEN TO PT. PT VERBALIZED UNDERSTANDING. NO SOB NOTED. DENIES ANY PAIN OR DISCOMFORT AT THIS TIME. IV CANNULA REMOVED AND INTACT. NAME ARMBAND REMOVED. PT WITH SIGNIFICANT OTHER. PRESCRIPTION GIVEN.
--- NOTE | 2017-01-10 12:50 | NUR ---
PT SIGNED DISCHARGE PAPERS. AND VERBALIZED TO FOLLOW UP WITH PCP WRITTEN ON THE DISCHARGE PAPERS.
[2017-01-10] MEDS ORDERED: BISMUTH SUBSALICYLATE 15 ML UDBTL PO SCH (13:00)
--- NOTE | 2017-01-10 13:00 | NUR ---
WHEELED PT OUT OF THE HOSPITAL GOING TO THE HOSPITAL PARKING LOT WITH SIGNIFICANT OTHER ON THEIR PRIVATE OWNED VEHICLE. NO SOB NOTED. DENIES ANY PAIN OR DISCOMFORT AT THIS TIME. PT ON STABLE CONDITION.
[2017-01-18 15:54] LABS: HEMOGLOBIN A1C 5.8 % (4.8-5.6)
== END 2017-01-10 13:00 | disposition home or self-care (01) | DRG 254 ==
LOC: MED 08:50 → MTU 10:54
PROVIDERS: ADMIT Family Medicine; ATTEND Family Medicine
PROC: 0DB68ZX Excision of Stomach, Via Natural or Artificial Opening Endoscopic, Diagnostic (ICD-10-PCS; principal; 2017-01-09 10:30)
DX: K58.9 Irritable bowel syndrome, unspecified (principal); N39.0 Urinary tract infection, site not specified; I10 Essential (primary) hypertension; M94.0 Chondrocostal junction syndrome [Tietze]; E78.5 Hyperlipidemia, unspecified; E83.39 Other disorders of phosphorus metabolism; K21.9 Gastro-esophageal reflux disease without esophagitis; F41.0 Panic disorder [episodic paroxysmal anxiety]; E66.9 Obesity, unspecified; B96.81 Helicobacter pylori [H. pylori] as the cause of diseases classified elsewhere; G89.29 Other chronic pain; Z53.29 Procedure and treatment not carried out because of patient's decision for other reasons; F17.210 Nicotine dependence, cigarettes, uncomplicated; Z90.49 Acquired absence of other specified parts of digestive tract; Z68.37 Body mass index [BMI] 37.0-37.9, adult; Z88.8 Allergy status to other drugs, medicaments and biological substances; Z84.89 Family history of other specified conditions; Z82.49 Family history of ischemic heart disease and other diseases of the circulatory system; Z83.49 Family history of other endocrine, nutritional and metabolic diseases
CPT/HCPCS: 36415; 71010; 80048; 80053; 80305; 81001; 82150; 83036; 83605; 83690; 83735; 83880; 84100; 84436; 84439; 84443; 84479; 84484; 84702; 85025; 85610; 85730; 86677; 87040; 87081; 87086; 87186; 93005; 96361; 96365; 96375; 99285; C9113; J1170; J1200; J1885; J2250; J2270; J2405; J2543; J3010; J3360; J3490; J7030; Q0092; Q0163

== ENCOUNTER 2017-02-12 08:48 | Emergency (ER) | payer MEDICAID ==
[~2017-02-12] VITALS: Ht 152.4 cm; Wt 88.5 kg
[~2017-02-12 08:48] MED LIST: ACET-1182 PO; ATOR20TA40 PO; ELA25 PO; LACT10CA PO; METR500T1 PO; OMEP20TC10 PO; PEP15L PO; [UNRECOGNIZED DRUG - CODE] PO
[2017-02-12 08:56] VITALS: BP 146/79
--- NOTE | 2017-02-12 09:08 | NUR ---
Patient to bed 4 at this time.
--- NOTE | 2017-02-12 09:18 | NUR ---
PATIENT PRESENTS TO ED WITH C/O RUQ PAIN RADIATING TO CHEST X 10 DAYS;N/V WITH DARK RED BLOOD;HX OF CHOLECYSTECTOMY; ALLERGIC TO IBUPROFEN . N/V WITH LITTLE BLOOD SKIN IS PINK/WARM/DRY; AAOX4 WITH EVEN AND STEADY GAIT; LUNGS CLEAR BL; HR EVEN AND REGULAR; PT DENIES ANY FEVER, CP, SOB, OR COUGH AT THIS TIME; PATIENT STATES PAIN OF 10/10 AT THIS TIME;PATIENT POSITIONED FOR COMFORT; HOB ELEVATED; BEDRAILS UP X2; BED DOWN. ER MD AT BEDSIDE.
[2017-02-12] MEDS ORDERED: MORPHINE SULFATE 4 MG/ML SYR IVP ONE (09:25)
[2017-02-12] MEDS ORDERED: ONDANSETRON 4 MG/2 ML VIAL IVP ONE (09:25)
[2017-02-12] MEDS ORDERED: ALUMINUM HYD/MAG/SIMETHICONE 30 ML UDC PO ONE (09:30)
[2017-02-12] MEDS ORDERED: NACL 0.9% 1,000 ML IV ONE (09:30)
[2017-02-12] MEDS ORDERED: PANTOPRAZOLE 40 MG INJ VIAL IVP ONE (09:30)
[2017-02-12 09:47] LABS: BASOPHILS # (AUTO) 0.6 K/uL (0.00-0.22); BASOPHILS % (AUTO) 4.6 % (0.0-2.0); EOSINOPHILS # (AUTO) 0.2 K/uL (0-0.4); EOSINOPHILS % (AUTO) 1.8 % (0.0-4.0); HEMATOCRIT 36.8 % (36-48); HEMOGLOBIN 11.8 g/dL (12.0-16.0); LYMPHOCYTES # (AUTO) 2.6 K/uL (2.5-16.5); LYMPHOCYTES % (AUTO) 20.8 % (20.5-51.1); MEAN CORPUSCULAR HEMOGLOBIN 28 pg (27-31); MEAN CORPUSCULAR HGB CONC 32 g/dL (33-37); MEAN CORPUSCULAR VOLUME 86 fL (80-94); MONOCYTES # (AUTO) 0.5 K/uL (0.8-1.0); MONOCYTES % (AUTO) 4.2 % (1.7-9.3); NEUTROPHILS # (AUTO) 8.8 K/uL (1.8-7.7); NEUTROPHILS % (AUTO) 68.6 % (42.2-75.2); PLATELET COUNT (AUTO) 438 K/uL (140-450); RED CELL DISTRIBUTION WIDTH 13.3 % (11.6-13.7); WHITE BLOOD COUNT (AUTO) 12.7 K/uL (4.8-10.8)
[2017-02-12 09:59] LABS: ANION GAP 14.2 (8-16); CALCIUM 8.7 mg/dL (8.5-10.1); CARBON DIOXIDE 25.3 mmol/L (21-32); CREATININE 0.6 mg/dL (0.6-1.3); POTASSIUM 3.5 mmol/L (3.5-5.1)
[2017-02-12 10:06] LABS: ALBUMIN 3.7 g/dL (3.4-5.0); TOTAL BILIRUBIN 0.3 mg/dL (0.0-1.0); TOTAL PROTEIN, SERUM 7.5 g/dL (6.4-8.2)
--- NOTE | 2017-02-12 10:13 | NUR ---
DR CAMACHO AT BEDSIDE.
--- NOTE | 2017-02-12 10:19 | NUR ---
Iam medeiros in ED - 02/22/17 at 0834 by MARYAM I L OF NS WAS CONSUMED AT AROUND 1019;TIM
--- NOTE | 2017-02-12 10:19 | NUR ---
700 ML OF NS WAS CONSUMED AT AROUND 1019;NADR
[2017-02-12 10:20] VITALS: BP 127/86
--- NOTE | 2017-02-12 10:20 | NUR ---
Patient discharged with v/s stable. Written and verbal after care instructions given and explained. Patient alert, oriented and verbalized understanding of instructions. Ambulatory with steady gait. All questions addressed prior to discharge. ID band removed. Patient advised to follow up with PMD. Rx of NORCO,ZOFRAN AND PEPCID given. Patient educated on indication of medication including possible reaction and side effects. Opportunity to ask questions provided and answered.
--- NOTE | 2017-02-22 08:20 | NUR ---
Iam medeiros in ED - 02/22/17 at 0831 by MARYAM I L OF NS WAS CONSUMED AT AROUND 1019;TIM
== END 2017-02-12 10:20 | disposition home or self-care (01) ==
LOC: MED 08:48
DX: K21.9 Gastro-esophageal reflux disease without esophagitis (principal); Z88.6 Allergy status to analgesic agent; Z90.49 Acquired absence of other specified parts of digestive tract
CPT/HCPCS: 36415; 80053; 81002; 81025; 83690; 85025; 96361; 96374; 96375; 99284; C9113; J2270; J2405; J7030

== ENCOUNTER 2017-02-13 17:12 | Inpatient (IN) | payer MEDICAID ==
[~2017-02-13] VITALS: Ht 152.4 cm; Wt 98.0 kg
[2017-02-13 18:42] VITALS: BP 154/95
--- NOTE | 2017-02-13 20:40 | NUR ---
TO ER BED 4
--- NOTE | 2017-02-13 20:42 | NUR ---
32 YO F W/C/O EPIGASTRIC PAIN X 10 DAYS GETTING WORSE EVERYDAY. PT STATES WAS SEEN YESTERDAY BUT BLOOD WORK WAS NORMAL, DENIES ANY CHEST PAIN , VSS. ER MD MADE AWARE. MED HX GERD, H-PYLORY.
[2017-02-13] MEDS ORDERED: NACL 0.9% 1,000 ML IV ONE (20:53)
[2017-02-13] MEDS ORDERED: MORPHINE SULFATE 4 MG/ML SYR IVP ONE (20:55)
[2017-02-13] MEDS ORDERED: ONDANSETRON 4 MG/2 ML VIAL IVP ONE ×2 (20:55→22:40)
[2017-02-13 21:09] LABS: BASOPHILS # (AUTO) 0.2 K/uL (0.00-0.22); BASOPHILS % (AUTO) 1.7 % (0.0-2.0); EOSINOPHILS # (AUTO) 0.2 K/uL (0-0.4); EOSINOPHILS % (AUTO) 1.6 % (0.0-4.0); HEMATOCRIT 34.7 % (36-48); HEMOGLOBIN 11.3 g/dL (12.0-16.0); LYMPHOCYTES # (AUTO) 3.1 K/uL (2.5-16.5); LYMPHOCYTES % (AUTO) 22.5 % (20.5-51.1); MEAN CORPUSCULAR HEMOGLOBIN 28 pg (27-31); MEAN CORPUSCULAR HGB CONC 33 g/dL (33-37); MEAN CORPUSCULAR VOLUME 86 fL (80-94); MONOCYTES % (AUTO) 7.6 % (1.7-9.3); NEUTROPHILS # (AUTO) 9.1 K/uL (1.8-7.7); NEUTROPHILS % (AUTO) 66.6 % (42.2-75.2); PLATELET COUNT (AUTO) 442 K/uL (140-450); RED BLOOD CELL COUNT(AUTO) 4.03 MIL/uL (4.20-5.40); RED CELL DISTRIBUTION WIDTH 13.2 % (11.6-13.7); WHITE BLOOD COUNT (AUTO) 13.6 K/uL (4.8-10.8)
--- NOTE | 2017-02-13 21:15 | NUR ---
PT RESTING IN BED, VSS. CO EPIGASTRIC PAIN 7/10, AND NAUSEA. ER MD MADE AWARE.
[2017-02-13 21:18] LABS: ANION GAP 9.9 (8-16); CALCIUM 8.4 mg/dL (8.5-10.1); CARBON DIOXIDE 28.1 mmol/L (21-32); CREATININE 0.5 mg/dL (0.6-1.3)
[2017-02-13 21:24] LABS: ALBUMIN 3.6 g/dL (3.4-5.0); TOTAL BILIRUBIN 0.1 mg/dL (0.0-1.0); TOTAL PROTEIN, SERUM 7.3 g/dL (6.4-8.2)
[2017-02-13] MEDS ORDERED: DICYCLOMINE HCL LIQUID 20 MG, ALUMINUM HYD/MAG/SIMETHICONE 30 ML, LIDOCAINE VISCOUS 2% ... PO ONE ×3 (22:05)
[2017-02-13 22:06] LABS: APPEARANCE,URINE CLEAR (CLEAR); BILIRUBIN,URINE NEGATIVE (NEGATIVE); BLOOD, URINE 1+ (NEGATIVE); COLOR,URINE YELLOW (YELLOW); LEUKOCYTE ESTERASE ,URINE NEGATIVE (NEGATIVE); NITRITE, URINE NEGATIVE (NEGATIVE); PH,URINE 7.5 (5.0-9.0); PROTEIN,URINE NEGATIVE (NEGATIVE); UGLUCOSE NEGATIVE (NEGATIVE); UROBILINOGEN,URINE 0.2 EU/dL (0.2 - 1)
[2017-02-13 22:08] LABS: BACTERIA,URINE FEW /HPF (None Seen); WBC,URINE 0-3 /HPF (0-5)
[2017-02-13 22:09] LABS: URINE AMORPHOUS PHOSPHATES 1+ /HPF (None Seen)
--- NOTE | 2017-02-13 22:30 | NUR ---
PT STATES TO FEEL NAUSEATED, VS REMAIN STABLE, SINUS RHYTHM.. ER MD NOTIFIED.
[2017-02-13] MEDS ORDERED: DICYCLOMINE 20 MG/2 ML VIAL IM ONE (22:40)
[2017-02-13] MEDS ORDERED: MORPHINE SULFATE 2 MG/ML SYR IVP PRN (23:00)
[2017-02-13] MEDS ORDERED: DOCUSATE SODIUM 100 MG GELCAP PO PRN (23:00)
[2017-02-13] MEDS ORDERED: HYDROcodone/APAP 7.5/325 MG 1 TAB PO PRN (23:00)
--- NOTE | 2017-02-13 23:07 | NUR ---
Patient will be admitted to care of DR CHRISTENSEN. Admited to TELEMETRY. Will go to room 112A. Belongings list completed. Report to RENÉ ABRAHAM.
--- NOTE | 2017-02-13 23:07 | NUR ---
Note mattyxavier in ED - 02/13/17 at 2314 by JANIYA Patient will be admitted to care of DR CHRISTENSEN. Admited to TELEMETRY. Will go to room 112A. Belongings list completed. Report to RENÉ HAWTHORNE.
--- NOTE | 2017-02-13 23:23 | NUR ---
PT TRASFERRED TO TELEMETRY FLOOR VIA GURNEY ACCOMPANIED BY RN AND EMT. VSS, NO SS OF DISTRESS NOTED UPON DC.
--- NOTE | 2017-02-13 23:30 | NUR ---
ADMITTED 32 YEARS OLD FEMALE FROM ER VIA GURNEY ACCOMPANIED BY FAMILY MEMBER. SEE NURSING ADMISSION ASSESSMENT AND HISTORY. ORIENTED TO ROOM AND UNIT ROUTINES. PLAN OF CARE DISCUSSED WITH PATIENT, VERBALIZED UNDERSTANDING WELL. CALL LIGHT WITHIN REACH.
[2017-02-13 23:36] LABS: INR 0.9 (0.8-1.2); PARTIAL THROMBOPLASTIN TIME 22.8 secs (22-35.6); PROTHROMBIN TIME 9.5 secs (10.8-13.4)
[2017-02-14] MEDS: NACL 0.9% 1,000 ML IV SCH ×3 (00:05→14:28)
[2017-02-14 00:06] VITALS: BP 122/89
[2017-02-14] MEDS ORDERED: ELA25 PO ×2 (00:32→00:36)
[2017-02-14] MEDS ORDERED: ATOR20TA40 PO (00:32)
--- NOTE | 2017-02-14 00:40 | NUR ---
AFEBRILE. PAIN MEDS GIVEN REQUESTED. VITAL SIGNS STABLE. CALL LIGHT WITHIN REACH.
[2017-02-14] MEDS ORDERED: KETOROLAC 30 MG/ML VIAL IVP PRN (01:30)
[2017-02-14] MEDS ORDERED: ACETAMINOPHEN 325 MG TAB PO PRN (01:30)
[2017-02-14 04:28] VITALS: BP 138/88
--- NOTE | 2017-02-14 04:29 | NUR ---
AWAKE, ASKING FOR PAIN MEDICATION. VITAL SIGNS STABLE. AFEBRILE. CALL LIGHT WITHIN REACH.
--- NOTE | 2017-02-14 05:02 | NUR ---
ENDORSED CARE AT BEDSIDE WITH CHINYERE RN, PATIENT IN STABLE CONDITION.
--- NOTE | 2017-02-14 05:05 | NUR ---
RECEIVED PT'S REPORT.PT IS STABLE.
[2017-02-14 05:41] LABS: BASOPHILS # (AUTO) 0.3 K/uL (0.00-0.22); BASOPHILS % (AUTO) 2.2 % (0.0-2.0); EOSINOPHILS # (AUTO) 0.3 K/uL (0-0.4); EOSINOPHILS % (AUTO) 2.4 % (0.0-4.0); HEMATOCRIT 32.8 % (36-48); HEMOGLOBIN 10.6 g/dL (12.0-16.0); LYMPHOCYTES # (AUTO) 3.1 K/uL (2.5-16.5); LYMPHOCYTES % (AUTO) 25.7 % (20.5-51.1); MEAN CORPUSCULAR HEMOGLOBIN 28 pg (27-31); MEAN CORPUSCULAR HGB CONC 32 g/dL (33-37); MEAN CORPUSCULAR VOLUME 86 fL (80-94); MONOCYTES # (AUTO) 0.8 K/uL (0.8-1.0); MONOCYTES % (AUTO) 6.7 % (1.7-9.3); NEUTROPHILS # (AUTO) 7.5 K/uL (1.8-7.7); PLATELET COUNT (AUTO) 400 K/uL (140-450); RED BLOOD CELL COUNT(AUTO) 3.84 MIL/uL (4.20-5.40); RED CELL DISTRIBUTION WIDTH 13.4 % (11.6-13.7)
[2017-02-14 06:02] LABS: PARTIAL THROMBOPLASTIN TIME 23.6 secs (22-35.6); PROTHROMBIN TIME 9.7 secs (10.8-13.4)
[2017-02-14 06:14] LABS: CALCIUM 7.8 mg/dL (8.5-10.1); CARBON DIOXIDE 23.6 mmol/L (21-32); CREATININE 0.6 mg/dL (0.6-1.3); POTASSIUM 3.6 mmol/L (3.5-5.1)
--- NOTE | 2017-02-14 06:20 | NUR ---
ENDORSED TO KEI MERRITT .PT IS IN STABLE CONDITION.
--- NOTE | 2017-02-14 06:20 | NUR ---
RECEIVED PATIENT REPORT. PATIENT AWAKE, ALERT, ORIENTED AND AMBULATORY. NO S/S OF DISTRESS NOTED. IV LINE TO THE LEFT AC INTACT WITH IVF INFUSING WELL. PATIENT ON TELE MONITORING. BED LOWERED WITH CALL LIGHT WITHIN REACH. WILL CONTINUE TO MONITOR
--- NOTE | 2017-02-14 07:15 | NUR ---
PATIENT AMBULATED TO THE BATHROOM TO VOID. PATIENT C/O OF 9/10 ABD PAIN. PATIENT MEDICATED 2HOURS AGO. WILL NOTIFY MD AND CONTINUE TO MONITOR
[2017-02-14 08:00] VITALS: BP 129/82
[2017-02-14 08:08] LABS: CHOL/HDL RATIO 6.4 (1-4.5)
--- NOTE | 2017-02-14 08:30 | NUR ---
PER DR MEI, ADMINISTER TYLENOL FOR PAIN FOR NOW. PATIENT TO BE SEEN BY GI CONSULT
[2017-02-14] MEDS: ACETAMINOPHEN 325 MG TAB PO PRN ×2 (08:38→21:30)
[2017-02-14] MEDS: PANTOPRAZOLE 40 MG INJ VIAL IVP SCH (08:38)
--- NOTE | 2017-02-14 09:18 | NUR ---
PATIENT HAS BEEN SCREENED AND CATEGORIZED HIGH NUTRITION RISK. PATIENT WILL BE SEEN WITHIN 1-2 DAYS OF ADMISSION. 02/14/17-02/15/[address]
--- NOTE | 2017-02-14 10:17 | NUR ---
CM NOTE INITIAL REVIEW FAXED TO [facility] [phone] AND TO [facility] [phone] [place] PH [phone]
[2017-02-14] MEDS ORDERED: SUCRALFATE 1 GM TAB PO SCH (10:21)
[2017-02-14 12:00] VITALS: BP 116/50
[2017-02-14] MEDS ORDERED: ALUMINUM HYD/MAG/SIMETHICONE 30 ML UDC PO SCH (12:15)
[2017-02-14] MEDS ORDERED: DICYCLOMINE HCL LIQUID 10 MG/5 ML UDC PO SCH (12:15)
[2017-02-14] MEDS ORDERED: LIDOCAINE VISCOUS 2% 20 ML UDC PO SCH (12:15)
[2017-02-14] MEDS: ONDANSETRON 4 MG/2 ML VIAL IM/IVP PRN (12:58)
--- NOTE | 2017-02-14 13:38 | NUR ---
02/14/17 RD INITIAL ASSESSMENT COMPLETED PLEASE REFER TO NUTRITION ASSESSMENT UNDER CARE ACTIVITY FOR ESTIMATED NUTRITIONAL NEEDS. 1. WHEN MEDICALLY FEASIBLE, INITIATE PO DIET TO START ON CLEAR LIQUID DIET AND ADVANCE TOLERATED TO CARDIAC DIET. 2. RD TO FOLLOW-UP 2-3 DAYS; HIGH RISK JOSH GAYTAN, PIETRO
[2017-02-14 16:00] VITALS: BP 108/73
--- NOTE | 2017-02-14 16:45 | NUR ---
PATIENT IN BED WATCHING TELEVISION. FAMILY MEMBER PRESENT AT BEDSIDE
--- NOTE | 2017-02-14 19:20 | NUR ---
PATIENT REPORT GIVEN AT BEDSIDE. PATIENT ENDORSED IN STABLE CONDITION
--- NOTE | 2017-02-14 19:30 | NUR ---
RECEIVED REPORT FROM AM NURSE. PT RESTING IN BED, AOX4, ABLE TO VERBALIZE NEEDS. PT DENIES CHEST PAIN, SOB OR S/S OF ACUTE DISTRESS. DENIES N/V AT THIS TIME, STATED LAST EMESIS WAS AT LUNCH, STATED LAST BM IN THE MORNING. PT C/O ABD PAIN. WILL ADMINISTER PAIN MED. IV ACCESS ASYMPTOMATIC, PATENT AND INTACT. IVF INFUSING WELL. DISCUSSED AND REVIEWED PLAN OF CARE WITH PT. INSTRUCTED PT TO COLLECT URINE SAMPLE, WILL SEND TO LAB WHEN COLLECTED. SAFETY MEASURES ENSURED. CALL LIGHT WITHIN REACH. WILL CONTINUE TO MONITOR.
[2017-02-14 20:00] VITALS: BP 116/87
[2017-02-14] MEDS: SUCRALFATE 1 GM TAB PO SCH (21:00)
--- NOTE | 2017-02-14 21:00 | NUR ---
DUE MED CARAFATE NOT ADMINISTERED DUE TO MED NOT AVAILABLE IN [facility] AND PER CONSTRUCTION MANAGEMENT INSTRUCTOR.
--- NOTE | 2017-02-14 21:15 | NUR ---
MADE DR SOLOMON AWARE THAT PT IS REQUESTING STRONGER PAIN MEDICATION DUE TO TYLENOL NOT RELIEVING PAIN AND THAT PT IS ALLERGIC TO IBUPROFEN. PER MD, OPIOID MEDICATION WILL PROVIDE IMMEDIATE RELIEF BUT WILL CAUSE GREATER PAIN LATER ON DUE TO SLOWING DOWN PERISTALSIS. PT EDUCATED ON, PT VERBALIZED UNDERSTANDING.
--- NOTE | 2017-02-14 21:30 | NUR ---
PT C/O PAIN. SEE PAIN ASSESSMENT. ADMINISTERED TYLENOL WITH EDUCATION ORDERED. PT VERBALIZED UNDERSTANDING, TOLERATED WELL. SAFETY MEASURES ENSURED. CALL LIGHT WITHIN REACH. WILL CONTINUE TO MONITOR.
[2017-02-14 21:44] LABS: AMPHETAMINE, URINE NEG. ng/ml (NEG <=1000); BARBITURATE, URINE NEG. ng/ml (NEG <=200); BENZODIAZEPINE, URINE NEG. ng/mL (NEG <=200); CANNABINOID, URINE POS. ng/mL (NEG <=50); COCAINE, URINE NEG. ng/mL (NEG <=300); OPIATE, URINE NEG. ng/mL (NEG <=2000); PHENCYCLIDINE SCREEN,URINE NEG. ng/mL (NEG <=25)
[2017-02-14] MEDS: ZOLPIDEM 5 MG TAB PO PRN (22:37)
--- NOTE | 2017-02-14 22:38 | NUR ---
PT C/O INSOMNIA. ADMINISTERED AMBIEN ORDERED. PT VERBALIZED UNDERSTANDING, TOLERATED MED WELL. SAFETY MEASURES ENSURED. CALL LIGHT WITHIN REACH. WILL CONTINUE TO MONITOR.
[2017-02-15] VITALS: BP 133/81
--- NOTE | 2017-02-15 01:00 | NUR ---
PT SLEEPING COMFORTABLY AT THIS TIME. CONDITION STABLE. ALL NEEDS MET. SAFETY MEASURES ENSURED. CALL LIGHT WITHIN REACH. WILL CONTINUE TO MONITOR.
--- NOTE | 2017-02-15 04:00 | NUR ---
PT SLEEPING COMFORTABLY AT THIS TIME. CONDITION STABLE. ALL NEEDS MET. SAFETY MEASURES ENSURED. CALL LIGHT WITHIN REACH. WILL CONTINUE TO MONITOR.
[2017-02-15 05:43] LABS: BASOPHILS # (AUTO) 0.1 K/uL (0.00-0.22); BASOPHILS % (AUTO) 0.9 % (0.0-2.0); EOSINOPHILS # (AUTO) 0.2 K/uL (0-0.4); EOSINOPHILS % (AUTO) 1.4 % (0.0-4.0); HEMATOCRIT 35.4 % (36-48); HEMOGLOBIN 11.5 g/dL (12.0-16.0); LYMPHOCYTES # (AUTO) 2.6 K/uL (2.5-16.5); LYMPHOCYTES % (AUTO) 20.2 % (20.5-51.1); MEAN CORPUSCULAR HEMOGLOBIN 28 pg (27-31); MEAN CORPUSCULAR HGB CONC 33 g/dL (33-37); MEAN CORPUSCULAR VOLUME 86 fL (80-94); MONOCYTES # (AUTO) 0.7 K/uL (0.8-1.0); MONOCYTES % (AUTO) 5.4 % (1.7-9.3); NEUTROPHILS # (AUTO) 9.3 K/uL (1.8-7.7); NEUTROPHILS % (AUTO) 72.1 % (42.2-75.2); PLATELET COUNT (AUTO) 406 K/uL (140-450); RED BLOOD CELL COUNT(AUTO) 4.13 MIL/uL (4.20-5.40); WHITE BLOOD COUNT (AUTO) 12.9 K/uL (4.8-10.8)
[2017-02-15 06:28] LABS: ANION GAP 13.1 (8-16); CALCIUM 8.3 mg/dL (8.5-10.1); CARBON DIOXIDE 25.5 mmol/L (21-32); CREATININE 0.6 mg/dL (0.6-1.3); POTASSIUM 3.6 mmol/L (3.5-5.1)
--- NOTE | 2017-02-15 07:33 | NUR ---
ENDORSED PLAN OF CARE WITH AM NURSE. CONDITION STABLE.
--- NOTE | 2017-02-15 07:34 | NUR ---
RECEIVED PT IN BED. AWAKE. ALERT ORIENTED X4. NO SOB NOTED. POSITIVE BOWEL SOUNDS NOTED ON FOUR QUADRANTS. PT AMBULATORY. SAFETY PRECAUTION IN PLACE. CALL LIGHT WITHIN REACH.
[2017-02-15 08:00] VITALS: BP 119/64
[2017-02-15] MEDS: PANTOPRAZOLE 40 MG INJ VIAL IVP SCH (08:52)
[2017-02-15] MEDS: SUCRALFATE 1 GM TAB PO SCH ×2 (08:52→21:29)
[2017-02-15] MEDS: NACL 0.9% 1,000 ML IV SCH ×3 (09:02→16:01)
--- NOTE | 2017-02-15 09:30 | NUR ---
DR. CAMEJO CAME TO SEE PT.
--- NOTE | 2017-02-15 09:52 | NUR ---
CM NOTE CONCURRENT REVIEW FAXED TO [facility] [phone] AND TO [facility] [phone] [place] PH [phone]
[2017-02-15] MEDS ORDERED: ACETAMINOPHEN 325 MG TAB PO PRN (13:25)
--- NOTE | 2017-02-15 13:48 | NUR ---
PT REFUSED TO TAKE TYLENOL Q4 HRS FOR PAIN. DUE TO PT VERBALIZED ITS NOT HELPING HER. DR. BOWMAN MADE AWARE AND WILL GO SEE PT.
--- NOTE | 2017-02-15 13:49 | NUR ---
PHARMACIST LEIGH MADE AWARE THAT TYLENOL 2TABS WAS ALREADY SCANNED AND SAVED. AND PT REFUSED TO TAKE THEM. LEIGH TOOK THE MEDS WITH HER.
[2017-02-15] MEDS: traMADol 50 MG TAB PO PRN ×2 (15:27→21:29)
[2017-02-15] MEDS ORDERED: SIMETHICONE 80 MG TAB.CHEW PO PRN (15:50)
[2017-02-15 16:00] VITALS: BP 124/83
[2017-02-15] MEDS ORDERED: DEXAMETHASONE 4 MG/ML VIAL IVP SCH (16:00)
[2017-02-15] MEDS ORDERED: BACLOFEN 10 MG TAB PO SCH (17:00)
[2017-02-15] MEDS ORDERED: BACLOFEN 10 MG TAB PO PRN (17:00)
--- NOTE | 2017-02-15 19:29 | NUR ---
CONSENT SECURED FOR CT OF ABDOMEN/ PELVIS WITH CONTRAST. EXPLAINED TO PT RISKS AND BENEFITS. PT VERBALIZED UNDERSTANDING. INSTRUCTED PT TO NOT TO EAT OF DRINK UNTIL PROCEDURE IS DONE.
--- NOTE | 2017-02-15 19:33 | NUR ---
PT KEPT CLEAN DRY AND COMFORTABLE. NEEDS ATTENDED. ENDORSED TO NEXT SHIFT FOR CONTINUITY OF CARE. PT ON STABLE CONDITION. NO SOB NOTED. DENIES ANY PAIN OR DISCOMFORT AT THIS TIME.
--- NOTE | 2017-02-15 19:35 | NUR ---
RECEIVED PT AWAKE SITTING ON BEDSIDE CHAIR, DENIES ANY PAIN, FOR CT SCAN OF ABDOMEN AND PELVIS WITH CONTRAST, INSTRUCTED NPO FOR NOW, ELODIA FROM CT MADE AWARE THAT PT ATE DINNER AT 1730, WILL NEED NPO FOR 4 HOURS, CONSENT SIGNED, IVF INFUSING WELL, SAFETY MEASURES IN PLACE, CALL LIGHT WITHIN REACH.
[2017-02-15] MEDS ORDERED: AMITRIPTYLINE 25 MG TAB PO SCH (21:00)
--- NOTE | 2017-02-15 22:10 | NUR ---
ELODIA FROM CT CAME AND STARTED PT ON ORAL CONTRAST, HE SAID THEY WILL DO THE CT AROUND 0000 TO 0030, PT MADE AWARE, PT MEDICATED WITH ZOFRAN BEFORE TAKING ORAL CONTRAST, MONITORED CLOSELY.
[2017-02-15] MEDS: ONDANSETRON 4 MG/2 ML VIAL IM/IVP PRN (22:11)
[2017-02-16] VITALS: BP 125/84
--- NOTE | 2017-02-16 01:10 | NUR ---
CALLED RADIOLOGY AND SPOKE TO BEKAH TO FOLLOW UP WHAT TIME IS SHE GOING TO DO THE CT, SHE SAID SHE WILL TRY TO [employer] ASSISTANT MANAGER PT WITHIN HALF AN HOUR, PT MADE AWARE, MAINTAINED ON NPO, IVF INFUSING WELL.
[2017-02-16] MEDS: ZOLPIDEM 5 MG TAB PO PRN (01:11)
[2017-02-16] MEDS: NACL 0.9% 1,000 ML IV SCH (01:12)
--- NOTE | 2017-02-16 02:15 | NUR ---
PT BACK FROM [place], [place] PROVIDED, TOLERATED WELL, MONITORED CLOSELY.
--- NOTE | 2017-02-16 05:30 | NUR ---
ROUNDED ON PT, SLEEPING, NO SIGNS OF DISTRESS, IVF INFUSING WELL, MONITORED CLOSELY.
[2017-02-16 06:01] LABS: BASOPHILS # (AUTO) 0.1 K/uL (0.00-0.22); BASOPHILS % (AUTO) 0.8 % (0.0-2.0); EOSINOPHILS # (AUTO) 0.1 K/uL (0-0.4); EOSINOPHILS % (AUTO) 0.8 % (0.0-4.0); HEMATOCRIT 33.7 % (36-48); HEMOGLOBIN 11.3 g/dL (12.0-16.0); LYMPHOCYTES # (AUTO) 2.1 K/uL (2.5-16.5); LYMPHOCYTES % (AUTO) 15.2 % (20.5-51.1); MEAN CORPUSCULAR HEMOGLOBIN 28 pg (27-31); MEAN CORPUSCULAR HGB CONC 34 g/dL (33-37); MEAN CORPUSCULAR VOLUME 84 fL (80-94); MONOCYTES # (AUTO) 0.6 K/uL (0.8-1.0); MONOCYTES % (AUTO) 4.4 % (1.7-9.3); NEUTROPHILS # (AUTO) 10.9 K/uL (1.8-7.7); NEUTROPHILS % (AUTO) 78.8 % (42.2-75.2); PLATELET COUNT (AUTO) 412 K/uL (140-450); RED CELL DISTRIBUTION WIDTH 13.2 % (11.6-13.7); WHITE BLOOD COUNT (AUTO) 13.8 K/uL (4.8-10.8)
[2017-02-16 06:15] LABS: ANION GAP 13.5 (8-16); CALCIUM 8.9 mg/dL (8.5-10.1); CARBON DIOXIDE 24.4 mmol/L (21-32); CREATININE 0.6 mg/dL (0.6-1.3); POTASSIUM 3.9 mmol/L (3.5-5.1)
[2017-02-16 06:22] LABS: PARTIAL THROMBOPLASTIN TIME 23.8 secs (22-35.6)
--- NOTE | 2017-02-16 07:22 | NUR ---
PT SLEEPING, NO SIGNS OF DISTRESS, REPORT GIVEN TO RENÉ MCDONOUGH FOR CONTINUITY OF CARE.
--- NOTE | 2017-02-16 07:23 | NUR ---
RECEIVED SBAR REPORT AT PT BEDSIDE. PT SLEEPING, EASILY AWAKENS. ALERT AND ORIENTED. C/O ABDOMINAL PAIN, WILL MEDICATE ORDERED. NO S/S OF RESPIRATORY DISTRESS NOTED. IV SITE PATENT AND INTACT. CALL LIGHT WITHIN REACH. WILL CONTINUE TO MONITOR.
[2017-02-16 08:00] VITALS: BP 124/69
--- NOTE | 2017-02-16 08:59 | NUR ---
02/16/17 RD FOLLOW-UP ASSESSMENT COMPLETED PLEASE REFER TO NUTRITION ASSESSMENT UNDER CARE ACTIVITY FOR ESTIMATED NUTRITIONAL NEEDS. 1. CONTINUE REGULAR DIET 2. RD TO FOLLOW-UP MODERATE RISK, 3-[address]
[2017-02-16] MEDS ORDERED: DICYCLOMINE 10 MG CAP PO SCH (09:00)
[2017-02-16] MEDS: traMADol 50 MG TAB PO PRN (09:03)
[2017-02-16] MEDS: SUCRALFATE 1 GM TAB PO SCH (09:03)
[2017-02-16] MEDS: PANTOPRAZOLE 40 MG INJ VIAL IVP SCH (09:03)
--- NOTE | 2017-02-16 09:20 | NUR ---
PATIENT MEDICATED FOR PAIN. NO S/S OF ACUTE DISTRESS NOTED.
--- NOTE | 2017-02-16 11:09 | NUR ---
CM NOTE CONCURRENT REVIEW FAXED TO [facility] [phone] AND TO [facility] [phone] [place] [facility] [phone]
[2017-02-16] MEDS ORDERED: ELA25 PO (11:39)
[2017-02-16] MEDS ORDERED: ACET-1182 PO ×2 (11:39)
[2017-02-16] MEDS ORDERED: SIME80CT27 PO (11:39)
[2017-02-16] MEDS ORDERED: BEN10 PO (11:39)
--- NOTE | 2017-02-16 13:30 | NUR ---
PATIENT TO BE DISCHARGED HOME. PT DISCHARGE INSTRUCTIONS WITH F/U TEACHING GIVEN, D/C MEDICATIONS GIVEN, VERBALIZED UNDERSTANDING. PATIENT IS ALERT AND ORIENTED. AMBULATORY. DENIES DISCOMFORT. NO S/S OF ACUTE DISTRESS. IV REMOVED, CANULA INTACT. SPOUSE AT BEDSIDE TO TAKE PATIENT HOME. PATIENT WHEELED TO FRONT LOBBY.
== END 2017-02-16 13:30 | disposition home or self-care (01) | DRG 241 ==
LOC: MED 17:12 → MTU 23:14
PROVIDERS: ADMIT Student in an Organized Health Care Education/Training Program; ATTEND Student in an Organized Health Care Education/Training Program
DX: K27.9 Peptic ulcer, site unspecified, unspecified as acute or chronic, without hemorrhage or perforation (principal); K76.0 Fatty (change of) liver, not elsewhere classified; E11.43 Type 2 diabetes mellitus with diabetic autonomic (poly)neuropathy; K31.84 Gastroparesis; F11.20 Opioid dependence, uncomplicated; K35.80 Unspecified acute appendicitis; Z68.41 Body mass index [BMI] 40.0-44.9, adult; I10 Essential (primary) hypertension; K58.9 Irritable bowel syndrome, unspecified; G89.29 Other chronic pain; M54.5 Low back pain; Z53.29 Procedure and treatment not carried out because of patient's decision for other reasons; E78.5 Hyperlipidemia, unspecified; D64.9 Anemia, unspecified; E66.9 Obesity, unspecified; Z88.6 Allergy status to analgesic agent; F12.90 Cannabis use, unspecified, uncomplicated; Z79.899 Other long term (current) drug therapy; Z90.49 Acquired absence of other specified parts of digestive tract; Z87.440 Personal history of urinary (tract) infections; Z82.49 Family history of ischemic heart disease and other diseases of the circulatory system; Z83.49 Family history of other endocrine, nutritional and metabolic diseases
CPT/HCPCS: 36415; 71010; 76700; 80048; 80053; 80305; 81001; 81025; 83036; 83690; 83735; 84100; 85025; 85610; 85651; 85730; 86140; 87040; 87081; 96372; 96374; 96375; 96376; 99285; C9113; J0500; J1100; J1885; J2270; J2405; J7030; Q0092; Q9967

== ENCOUNTER 2017-03-26 14:15 | Emergency (ER) | payer MEDICAID ==
[~2017-03-26] VITALS: Ht 152.4 cm; Wt 97.6 kg
[~2017-03-26 14:15] MED LIST changes: +BEN10 PO; -METR500T1 PO; +SIME80CT27 PO; -[UNRECOGNIZED DRUG - CODE] PO
[2017-03-26 14:23] VITALS: BP 153/101
--- NOTE | 2017-03-26 14:29 | NUR ---
Patient ambulated to bed 5. RN evaluating patient at bedside.
--- NOTE | 2017-03-26 14:33 | NUR ---
Dr. Watts evaluating patient at bedside.
--- NOTE | 2017-03-26 14:38 | NUR ---
32/F c/o right flank pain x3 days accompanied by N/V/D. Pt states "I've been vomiting 4 times a day." Denies diarrhea or constipation. Denies fever or chills. Pt c/o 9/10 pain, sharp, aching, radiating to right abdomen, constant. Abdomen soft, non tender, active bowel sounds x 4 quadrants. VSS.
[2017-03-26] MEDS ORDERED: NACL 0.9% 1,000 ML IV ONE (14:40)
[2017-03-26] MEDS ORDERED: MORPHINE SULFATE 4 MG/ML SYR IVP ONE (14:40)
[2017-03-26] MEDS ORDERED: ONDANSETRON 4 MG/2 ML VIAL IVP ONE (14:40)
--- NOTE | 2017-03-26 14:55 | NUR ---
PATIENT MEDICATED FOR PAIN/NAUSEA 04/08
[2017-03-26 15:08] LABS: APPEARANCE,URINE CLEAR (CLEAR); BILIRUBIN,URINE NEGATIVE (NEGATIVE); BLOOD, URINE 3+ (NEGATIVE); COLOR,URINE YELLOW (YELLOW); LEUKOCYTE ESTERASE ,URINE NEGATIVE (NEGATIVE); NITRITE, URINE NEGATIVE (NEGATIVE); UGLUCOSE NEGATIVE (NEGATIVE)
[2017-03-26 15:09] LABS: BARBITURATE, URINE NEG. ng/ml (NEG <=200); BENZODIAZEPINE, URINE NEG. ng/mL (NEG <=200); CANNABINOID, URINE POS. ng/mL (NEG <=50); COCAINE, URINE NEG. ng/mL (NEG <=300); OPIATE, URINE POS. ng/mL (NEG <=2000); PHENCYCLIDINE SCREEN,URINE NEG. ng/mL (NEG <=25); WBC,URINE 0-2 /HPF (0-5)
[2017-03-26 15:10] LABS: YEAST,URINE Rare /HPF (None Seen)
[2017-03-26 15:16] LABS: HEMATOCRIT 37.9 % (36-48); HEMOGLOBIN 12.3 g/dL (12.0-16.0); MEAN CORPUSCULAR HEMOGLOBIN 28 pg (27-31); MEAN CORPUSCULAR HGB CONC 33 g/dL (33-37); MEAN CORPUSCULAR VOLUME 85 fL (80-94); PLATELET COUNT (AUTO) 391 K/uL (140-450); RED BLOOD CELL COUNT(AUTO) 4.48 MIL/uL (4.20-5.40); RED CELL DISTRIBUTION WIDTH 14.1 % (11.6-13.7); WHITE BLOOD COUNT (AUTO) 13.8 K/uL (4.8-10.8)
[2017-03-26 15:19] LABS: ANION GAP 11.8 (8-16); CARBON DIOXIDE 25.4 mmol/L (21-32); CREATININE 0.6 mg/dL (0.6-1.3); POTASSIUM 4.2 mmol/L (3.5-5.1)
[2017-03-26 15:24] LABS: ALBUMIN 3.7 g/dL (3.4-5.0); TOTAL BILIRUBIN 0.3 mg/dL (0.0-1.0)
[2017-03-26 15:41] LABS: LYMPHOCYTES % (MANUAL) 11 % (20-46); MONOCYTES % (MANUAL) 5 % (5-12)
--- NOTE | 2017-03-26 15:48 | NUR ---
Pt taken to CT via w/c.
--- NOTE | 2017-03-26 15:59 | NUR ---
Pt back from CT and placed in bed 5
[2017-03-26 16:55] VITALS: BP 124/77
--- NOTE | 2017-03-26 16:55 | NUR ---
Patient discharged with v/s stable. Written and verbal after care instructions given and explained. Patient alert, oriented and verbalized understanding of instructions. Ambulatory with steady gait. All questions addressed prior to discharge. ID band removed. Patient advised to follow up with PMD. Rx of Miralax powder given. Patient educated on indication of medication including possible reaction and side effects. Opportunity to ask questions provided and answered.
== END 2017-03-26 16:55 | disposition home or self-care (01) ==
LOC: MED 14:15
DX: K59.00 Constipation, unspecified (principal); R11.2 Nausea with vomiting, unspecified; Z79.899 Other long term (current) drug therapy; Z88.6 Allergy status to analgesic agent; Z90.49 Acquired absence of other specified parts of digestive tract
CPT/HCPCS: 36415; 74177; 80053; 80305; 81001; 81025; 83690; 85025; 96361; 96374; 96375; 99285; J2270; J2405; J7030; Q9967

== ENCOUNTER 2017-07-28 07:10 | Emergency (ER) | payer MEDICAID ==
[~2017-07-28] VITALS: Ht 152.4 cm; Wt 99.8 kg
[2017-07-28 07:20] VITALS: BP 146/98
[2017-07-28] MEDS ORDERED: ALBUTEROL SULFATE/IPRATROPIU 3 ML SOL IH ONE (08:25)
[2017-07-28] MEDS ORDERED: ACETAMINOPHEN EXTRA STRENGTH 500 MG TAB PO ONE (08:25)
[2017-07-28] MEDS ORDERED: DEXAMETHASONE 10 MG/ML VIAL IM ONE (09:15)
[2017-07-28 10:21] VITALS: BP 142/90
== END 2017-07-28 10:21 | disposition home or self-care (01) ==
LOC: MED 07:10
DX: J02.9 Acute pharyngitis, unspecified (principal); H92.03 Otalgia, bilateral; Z88.6 Allergy status to analgesic agent
CPT/HCPCS: 36415; 87081; 87804; 94640; 96372; 99284; J1100; J7620

== ENCOUNTER 2017-11-13 08:46 | Emergency (ER) | payer MEDICAID ==
[~2017-11-13] VITALS: Ht 152.4 cm; Wt 99.8 kg
[2017-11-13 09:04] VITALS: BP 144/94
[2017-11-13] MEDS: ONDANSETRON 4 MG ODT PO ONE (10:09)
[2017-11-13] MEDS: ACETAMINOPHEN EXTRA STRENGTH 500 MG TAB PO ONE (10:09)
[2017-11-13 10:19] LABS: BASOPHILS # (AUTO) 0.2 K/uL (0.00-0.22); BASOPHILS % (AUTO) 1.6 % (0.0-2.0); EOSINOPHILS # (AUTO) 0.2 K/uL (0-0.4); EOSINOPHILS % (AUTO) 1.8 % (0.0-4.0); HEMATOCRIT 38.4 % (36-48); HEMOGLOBIN 12.5 g/dL (12.0-16.0); LYMPHOCYTES # (AUTO) 2.6 K/uL (2.5-16.5); LYMPHOCYTES % (AUTO) 21.1 % (20.5-51.1); MEAN CORPUSCULAR HEMOGLOBIN 28 pg (27-31); MEAN CORPUSCULAR HGB CONC 33 g/dL (33-37); MEAN CORPUSCULAR VOLUME 86.1 fL (80-94); MONOCYTES # (AUTO) 0.3 K/uL (0.8-1.0); MONOCYTES % (AUTO) 2.2 % (1.7-9.3); NEUTROPHILS # (AUTO) 9.2 K/uL (1.8-7.7); NEUTROPHILS % (AUTO) 73.3 % (42.2-75.2); PLATELET COUNT (AUTO) 394 K/uL (140-450); RED BLOOD CELL COUNT(AUTO) 4.46 MIL/uL (4.20-5.40); RED CELL DISTRIBUTION WIDTH 13.3 % (11.6-13.7); WHITE BLOOD COUNT (AUTO) 12.5 K/uL (4.8-10.8)
[2017-11-13 10:26] LABS: ANION GAP 13.9 (8-16); CREATININE 0.6 mg/dL (0.6-1.3); POTASSIUM 3.9 mmol/L (3.5-5.1)
[2017-11-13 10:32] LABS: ALBUMIN 3.7 g/dL (3.4-5.0); TOTAL BILIRUBIN 0.2 mg/dL (0.0-1.0)
[2017-11-13 10:44] LABS: APPEARANCE,URINE CLEAR (CLEAR); BILIRUBIN,URINE NEGATIVE (NEGATIVE); BLOOD, URINE 2+ (NEGATIVE); COLOR,URINE YELLOW (YELLOW); LEUKOCYTE ESTERASE ,URINE NEGATIVE (NEGATIVE); NITRITE, URINE NEGATIVE (NEGATIVE); UGLUCOSE NEGATIVE (NEGATIVE)
[2017-11-13 11:01] LABS: RBC,URINE 0-5 (RARE) /HPF (0-5); WBC,URINE 0-5 (RARE) /HPF (0-5)
[2017-11-13] MEDS: oxyCODONE/APAP 5/325 MG 1 TAB TAB PO ONE (12:10)
[2017-11-13] MEDS: metroNIDAZOLE 250 MG TAB PO ONE (14:03)
[2017-11-13 14:12] VITALS: BP 147/105
[2017-11-15 06:19] LABS: CHLAMYDIA TRACHOMATIS AMP DNA Negative (Negative)
== END 2017-11-13 14:11 | disposition home or self-care (01) ==
LOC: MED 08:46
DX: N76.0 Acute vaginitis (principal); N73.9 Female pelvic inflammatory disease, unspecified; Z88.6 Allergy status to analgesic agent
CPT/HCPCS: 36415; 80053; 81001; 81025; 82150; 83690; 84703; 85025; 87210; 87491; 99284; S0119

== ENCOUNTER 2018-09-21 10:13 | Emergency (ER) | payer MEDICAID ==
[~2018-09-21] VITALS: Ht 152.4 cm; Wt 104.3 kg
[2018-09-21 10:17] VITALS: BP 180/105
--- NOTE | 2018-09-21 10:20 | NUR ---
PATIENT PRESENTS TO ED WITH THE CHIEF C/O RIGHT MIDDLE FINGER FOR PAST FOUR DAYS. PER PT, SHE HIT HER FINGER BY CAR DOOR. TOLERABLE PAIN AT THAT TIME. NOW GETTING WORSE, PAIN RADIATES TO WHOLE RIGHT ARM. PT UNABLE TO MOVE FINGER FREELY. SWOLLEN AND REDNESS NOTED ON FINGER. NO ANY DISCHARGE. DENIES N/V/D; SKIN IS PINK/WARM/DRY; AAOX4 WITH EVEN AND STEADY GAIT. PT DENIES ANY FEVER, CP, SOB, OR COUGH AT THIS TIME; PATIENT STATES PAIN OF 8/10 AT THIS TIME. VSS. PATIENT POSITIONED FOR COMFORT; HOB ELEVATED; BEDRAILS UP X2; BED DOWN. ER MD MADE AWARE OF PT STATUS.
[2018-09-21] MEDS ORDERED: SULFAMETH/TRIMETH DS 800/160MG 1 TAB PO ONE (12:25)
--- NOTE | 2018-09-21 12:42 | NUR ---
Patient discharged with v/s stable. Written and verbal after care instructions given and explained. Patient alert, oriented and verbalized understanding of instructions. Ambulatory with steady gait. All questions addressed prior to discharge. ID band removed. Patient advised to follow up with PMD. Rx of bactrim and tramadol given. Patient educated on indication of medication including possible reaction and side effects. Opportunity to ask questions provided and answered.
[2018-09-21 12:44] VITALS: BP 147/89
== END 2018-09-21 12:42 | disposition home or self-care (01) ==
LOC: MED 10:13
DX: L03.011 Cellulitis of right finger (principal); Z79.1 Long term (current) use of non-steroidal anti-inflammatories (NSAID); Z79.899 Other long term (current) drug therapy; Z88.6 Allergy status to analgesic agent
CPT/HCPCS: 73130; 81025; 99283

== ENCOUNTER 2019-01-05 19:11 | Emergency (ER) | payer MEDICAID ==
[~2019-01-05] VITALS: Ht 152.4 cm; Wt 99.3 kg
--- NOTE | 2019-01-05 19:18 | NUR ---
PT AMBULATED TO BED 5
[2019-01-05 19:19] VITALS: BP 128/93
[2019-01-05] MEDS ORDERED: ONDANSETRON 4 MG/2 ML VIAL IVP ONE (19:55)
[2019-01-05] MEDS ORDERED: ALBUTEROL SULFATE/IPRATROPIU 3 ML SOL IH ONE (19:55)
[2019-01-05] MEDS ORDERED: NACL 0.9% 1,000 ML IV ONE (19:55)
--- NOTE | 2019-01-05 19:59 | NUR ---
RT BEDSIDE FOR BREATHING TREATMENT
[2019-01-05 20:06] LABS: APPEARANCE,URINE HAZY (CLEAR); BILIRUBIN,URINE 1+ (NEGATIVE); BLOOD, URINE 2+ (NEGATIVE); COLOR,URINE YELLOW (YELLOW); LEUKOCYTE ESTERASE ,URINE NEGATIVE (NEGATIVE); NITRITE, URINE NEGATIVE (NEGATIVE); UGLUCOSE NEGATIVE (NEGATIVE)
[2019-01-05 20:08] LABS: RBC,URINE 11-20 (MOD) /HPF (0-5)
[2019-01-05 20:09] LABS: BASOPHILS # (AUTO) 0.1 K/uL (0.00-0.22); EOSINOPHILS # (AUTO) 0.2 K/uL (0-0.4); EOSINOPHILS % (AUTO) 1.7 % (0.0-4.0); HEMATOCRIT 40.1 % (36-48); HEMOGLOBIN 13.4 g/dL (12.0-16.0); LYMPHOCYTES # (AUTO) 2.5 K/uL (2.5-16.5); LYMPHOCYTES % (AUTO) 20.7 % (20.5-51.1); MEAN CORPUSCULAR HEMOGLOBIN 28 pg (27-31); MEAN CORPUSCULAR HGB CONC 33 g/dL (33-37); MEAN CORPUSCULAR VOLUME 84.2 fL (80-94); MONOCYTES # (AUTO) 0.8 K/uL (0.8-1.0); MONOCYTES % (AUTO) 6.2 % (1.7-9.3); NEUTROPHILS # (AUTO) 8.6 K/uL (1.8-7.7); NEUTROPHILS % (AUTO) 70.4 % (42.2-75.2); PLATELET COUNT (AUTO) 480 K/uL (140-450); RED BLOOD CELL COUNT(AUTO) 4.76 MIL/uL (4.20-5.40); WHITE BLOOD COUNT (AUTO) 12.2 K/uL (4.8-10.8)
--- NOTE | 2019-01-05 20:09 | NUR ---
PT BIB SELF FOR NAUSEA, DIARRHEA, COUGH, AND ABD PAIN FOR PAST FEW DAYS. PT REPORTS INCREASING IN S/S TODAY. RR EVEN AND UNLABORED. PT REPORTS UPPER ABD PAIN, ABD IS ROUND, SOFT, NON TENDER, ACTIVE BS X4.
[2019-01-05 20:21] LABS: ANION GAP 12.7 (8-16); CARBON DIOXIDE 23.5 mmol/L (21-32); CREATININE 0.6 mg/dL (0.6-1.3); POTASSIUM 3.2 mmol/L (3.5-5.1)
[2019-01-05 20:27] LABS: ALBUMIN 3.8 g/dL (3.4-5.0); TOTAL BILIRUBIN 0.3 mg/dL (0.0-1.0)
[2019-01-05] MEDS ORDERED: POTASSIUM CHLORIDE 10 MEQ TABER PO ONE (20:40)
[2019-01-05 21:10] VITALS: BP 134/88
--- NOTE | 2019-01-05 21:10 | NUR ---
Patient discharged with v/s stable. Written and verbal after care instructions given and explained. Patient alert, oriented and verbalized understanding of instructions. Ambulatory with steady gait. All questions addressed prior to discharge. ID band removed. Patient advised to follow up with PMD. Rx of ALBUTEROL, PREDNISONE, AND TESSALON PERLES given. Patient educated on indication of medication including possible reaction and side effects. Opportunity to ask questions provided and answered.
== END 2019-01-05 21:10 | disposition home or self-care (01) ==
LOC: MED 19:11
DX: J40 Bronchitis, not specified as acute or chronic (principal); E87.6 Hypokalemia; K52.9 Noninfective gastroenteritis and colitis, unspecified; F17.210 Nicotine dependence, cigarettes, uncomplicated; Z88.8 Allergy status to other drugs, medicaments and biological substances; Z90.49 Acquired absence of other specified parts of digestive tract; Z79.899 Other long term (current) drug therapy
CPT/HCPCS: 36415; 71045; 80053; 81001; 81025; 83690; 85025; 87086; 94640; 96361; 96374; 99284; J2405; J7620; Q0092

== ENCOUNTER 2019-03-24 16:17 | Emergency (ER) | payer MEDICAID ==
[~2019-03-24] VITALS: Ht 152.4 cm; Wt 97.1 kg
[2019-03-24 16:25] VITALS: BP 146/99
--- NOTE | 2019-03-24 16:35 | NUR ---
BIB SELF. AAO X4. PT C/O LT ELBOW, LEFT SIDE OF THE BODY PAIN AFTER MECHANICAL SLIP AND FALL 3 DAYS AGO. PT WAS WALKING UP STEPS AND FELL 4 STEPS FALLING ON LT SIDE OF BODY ON CONCRETE. PT DENIES HITTING HEAD OR LOC. PT REPORTS SHOULDER, ELBOW, BACK, HIP, KNEE AND DONOVAN PAIN. PT STATES THAT IT FEELS LIKE HER LEFT KNEE LOCKS UP. PT AMBULATED WITH STEADY GAIT. PT TOOK TYLENOL THIS AM WITH NO RELIEF. +CMS TO LEFT ARM, LEFT HAND, LEFT LEG, LEFT FOOT, +FULL ROM TO LEFT ARM AND LEFT LEG. ER TO EVALUATE PT.
[2019-03-24] MEDS ORDERED: MORPHINE SULFATE 4 MG/ML SYR IM ONE (17:10)
[2019-03-24] MEDS ORDERED: ACETAMINOPHEN EXTRA STRENGTH 500 MG TAB PO ONE (17:10)
--- NOTE | 2019-03-24 17:25 | NUR ---
PT TAKEN TO RADIOLOGY BY WHEEL CHAIR BY PATRICA HINKLE
[2019-03-24 18:41] VITALS: BP 133/78
== END 2019-03-24 18:45 | disposition home or self-care (01) ==
LOC: MED 16:17
DX: S83.92XA Sprain of unspecified site of left knee, initial encounter (principal); S40.012A Contusion of left shoulder, initial encounter; Z79.899 Other long term (current) drug therapy; Z79.891 Long term (current) use of opiate analgesic; Z79.84 Long term (current) use of oral hypoglycemic drugs; Z88.6 Allergy status to analgesic agent; W10.8XXA Fall (on) (from) other stairs and steps, initial encounter; Y93.89 Activity, other specified; Y92.89 Other specified places as the place of occurrence of the external cause; Y99.8 Other external cause status
CPT/HCPCS: 73030; 73562; 81025; 96372; 99283; J2270

== ENCOUNTER 2019-05-19 12:38 | Emergency (ER) | payer MEDICAID ==
[~2019-05-19] VITALS: Ht 152.4 cm; Wt 96.2 kg
[2019-05-19 12:49] VITALS: BP 110/75
--- NOTE | 2019-05-19 13:02 | NUR ---
PATIENT AMBULATED TO BED 4.
[2019-05-19] MEDS ORDERED: DICYCLOMINE HCL LIQUID 20 MG, ALUMINUM HYD/MAG/SIMETHICONE 30 ML, LIDOCAINE VISCOUS 2% ... PO ONE ×3 (13:05)
[2019-05-19] MEDS ORDERED: ONDANSETRON 4 MG/2 ML VIAL IVP ONE (13:15)
[2019-05-19] MEDS ORDERED: MORPHINE SULFATE 4 MG/ML SYR IVP ONE ×2 (13:15→15:25)
[2019-05-19] MEDS ORDERED: NACL 0.9% 1,000 ML IV ONE (13:15)
--- NOTE | 2019-05-19 13:30 | NUR ---
PT BIB SELF C/O RT SIDED ABD PAIN W/ N/V/D X 2 DAYS AND LT SHARP SIDED CHEST PAIN RADIATING TO BACK X LAST NIGHT AT 9/10. DENIES SOB AT THIS TIME. NO EDEMA, CAP REFIL <2 SEC. ABD IS TENDER TO TOUCH ON RT SIDE, ABD ROUND AND FIRM. LAST BM THIS MORNING. VSS. ER MD TO SEE PT. HX: H-PYLORI RX:DENIES
[2019-05-19 13:39] LABS: BASOPHILS % (AUTO) 0.3 % (0.0-2.0); EOSINOPHILS # (AUTO) 0.1 K/uL (0-0.4); EOSINOPHILS % (AUTO) 1.2 % (0.0-4.0); HEMATOCRIT 36.8 % (36-48); LYMPHOCYTES # (AUTO) 1.6 K/uL (2.5-16.5); LYMPHOCYTES % (AUTO) 19.1 % (20.5-51.1); MEAN CORPUSCULAR HEMOGLOBIN 28 pg (27-31); MEAN CORPUSCULAR HGB CONC 33 g/dL (33-37); MEAN CORPUSCULAR VOLUME 85.8 fL (80-94); MONOCYTES # (AUTO) 0.7 K/uL (0.8-1.0); MONOCYTES % (AUTO) 8.3 % (1.7-9.3); NEUTROPHILS # (AUTO) 6.1 K/uL (1.8-7.7); NEUTROPHILS % (AUTO) 71.1 % (42.2-75.2); PLATELET COUNT (AUTO) 353 K/uL (140-450); RED BLOOD CELL COUNT(AUTO) 4.29 MIL/uL (4.20-5.40); RED CELL DISTRIBUTION WIDTH 14.7 % (11.6-13.7); WHITE BLOOD COUNT (AUTO) 8.6 K/uL (4.8-10.8)
[2019-05-19 14:40] LABS: ALBUMIN 3.5 g/dL (3.4-5.0); ANION GAP 15.1 (8-16); CARBON DIOXIDE 23.5 mmol/L (21-32); CREATININE 0.5 mg/dL (0.6-1.3); POTASSIUM 3.6 mmol/L (3.5-5.1); TOTAL BILIRUBIN 0.3 mg/dL (0.0-1.0)
--- NOTE | 2019-05-19 14:42 | NUR ---
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
--- NOTE | 2019-05-19 16:11 | NUR ---
PATIENT RETURNING FROM CT AT THIS TIME
--- NOTE | 2019-05-19 16:26 | NUR ---
LAB AT BEDSIDE
--- NOTE | 2019-05-19 16:46 | NUR ---
Patient discharged with v/s stable. Written and verbal after care instructions given and explained. Patient alert, oriented and verbalized understanding of instructions. Ambulatory with steady gait. All questions addressed prior to discharge. ID band removed. Patient advised to follow up with PMD. Rx of PRILOSEC given. Patient educated on indication of medication including possible reaction and side effects. Opportunity to ask questions provided and answered.
--- NOTE | 2019-05-19 16:46 | NUR ---
IV removed, catheter intact and site benign. Applied folded 4x4 gauze and tape to stop bleeding.
[2019-05-19 16:47] VITALS: BP 118/73
== END 2019-05-19 16:46 | disposition home or self-care (01) ==
LOC: MED 12:38
DX: K29.70 Gastritis, unspecified, without bleeding (principal); K76.0 Fatty (change of) liver, not elsewhere classified; K21.9 Gastro-esophageal reflux disease without esophagitis; Z90.49 Acquired absence of other specified parts of digestive tract; Z98.890 Other specified postprocedural states; Z79.899 Other long term (current) drug therapy; Z88.8 Allergy status to other drugs, medicaments and biological substances
CPT/HCPCS: 36415; 74176; 80053; 81002; 81025; 83690; 84484; 85025; 93005; 96361; 96374; 96375; 96376; 99284; J2270; J2405; J7030

== ENCOUNTER 2019-07-28 12:49 | Emergency (ER) | payer MEDICAID ==
[~2019-07-28] VITALS: Ht 152.4 cm; Wt 90.7 kg
[2019-07-28 13:26] VITALS: BP 132/83
--- NOTE | 2019-07-28 13:32 | NUR ---
AAO X4 34 YR OLD F BIB SELF W/ C/O MULTIPLE SITES OF ABSCESS, DRAINING ADDS PAIN TO RLQ ABSCESS SITE, UNDER LEFT BREAST, AND RIGHT AXILLA. PER PT SHE WAS ALSO VOMITING YESTERDAY. HX--GERD RX--NONE
[2019-07-28] MEDS ORDERED: NACL 0.9% 1,000 ML IV ONE (13:50)
[2019-07-28] MEDS ORDERED: ONDANSETRON 4 MG/2 ML VIAL IVP ONE (13:50)
[2019-07-28 14:32] LABS: BASOPHILS # (AUTO) 0.1 K/uL (0.00-0.22); BASOPHILS % (AUTO) 0.7 % (0.0-2.0); EOSINOPHILS # (AUTO) 0.2 K/uL (0-0.4); EOSINOPHILS % (AUTO) 1.9 % (0.0-4.0); HEMATOCRIT 37.5 % (36-48); HEMOGLOBIN 12.1 g/dL (12.0-16.0); LYMPHOCYTES # (AUTO) 2.5 K/uL (2.5-16.5); MEAN CORPUSCULAR HEMOGLOBIN 28 pg (27-31); MEAN CORPUSCULAR HGB CONC 32 g/dL (33-37); MEAN CORPUSCULAR VOLUME 85.8 fL (80-94); MONOCYTES # (AUTO) 0.7 K/uL (0.8-1.0); MONOCYTES % (AUTO) 6.7 % (1.7-9.3); NEUTROPHILS # (AUTO) 6.9 K/uL (1.8-7.7); NEUTROPHILS % (AUTO) 66.7 % (42.2-75.2); PLATELET COUNT (AUTO) 417 K/uL (140-450); RED BLOOD CELL COUNT(AUTO) 4.37 MIL/uL (4.20-5.40); RED CELL DISTRIBUTION WIDTH 15.3 % (11.6-13.7); WHITE BLOOD COUNT (AUTO) 10.4 K/uL (4.8-10.8)
[2019-07-28 15:02] LABS: ANION GAP 13.2 (8-16); CARBON DIOXIDE 25.7 mmol/L (21-32); CREATININE 0.6 mg/dL (0.6-1.3); POTASSIUM 3.9 mmol/L (3.5-5.1)
[2019-07-28 15:08] LABS: ALBUMIN 3.5 g/dL (3.4-5.0); TOTAL BILIRUBIN 0.1 mg/dL (0.0-1.0)
[2019-07-28] MEDS ORDERED: SULFAMETH/TRIMETH DS 800/160MG 1 TAB PO ONE (15:20)
[2019-07-28] MEDS ORDERED: CEPHALEXIN 500 MG CAP PO ONE (15:20)
[2019-07-28] MEDS ORDERED: HYDROcodone/APAP 5/325 MG 1 TAB TAB PO ONE (16:00)
[2019-07-28 16:12] VITALS: BP 128/78
--- NOTE | 2019-07-28 16:12 | NUR ---
Patient discharged with v/s stable. Written and verbal after care instructions given and explained. Patient alert, oriented and verbalized understanding of instructions. Ambulatory with steady gait. All questions addressed prior to discharge. ID band removed. Patient advised to follow up with PMD. Rx of Keflex, Bactrim given. Patient educated on indication of medication including possible reaction and side effects. Opportunity to ask questions provided and answered.
== END 2019-07-28 16:12 | disposition home or self-care (01) ==
LOC: MED 12:49
DX: L02.211 Cutaneous abscess of abdominal wall (principal); N61.1 Abscess of the breast and nipple; L02.411 Cutaneous abscess of right axilla; R11.2 Nausea with vomiting, unspecified; K21.9 Gastro-esophageal reflux disease without esophagitis; Z88.6 Allergy status to analgesic agent; Z79.899 Other long term (current) drug therapy
CPT/HCPCS: 36415; 80053; 85025; 96361; 96374; 99284; J2405; J7030

== ENCOUNTER 2020-03-27 18:08 | Emergency (ER) | payer MEDICAID ==
[~2020-03-27] VITALS: Ht 152.4 cm; Wt 92.5 kg
[2020-03-27 18:13] VITALS: BP 176/105
--- NOTE | 2020-03-27 18:18 | NUR ---
urine cup handed to pt for sample
--- NOTE | 2020-03-27 18:26 | NUR ---
35 Y/O F C/C LOW BACK PAIN WITH BILATERAL LEG PAIN X 4 DAYS. PT DENIES LIFTING,BENDING,TWISTING,TRAUMA. PER PT PAIN HAS BEEN PROGRESSIVELY WORSE SINCE IT STARTED. TAKEN TYLENOL WITH NO RELIEF, PAIN 04/08. ALLERGY MOTRIN. HX H PYLORI. SX GALLBLADDER,C SECTION. NO RX. NO NVD. SIDE RAIL X1.
--- NOTE | 2020-03-27 19:08 | NUR ---
REPORT RECEIVED FROM HERNAN MERRITT FOR CONTINUITY OF CARE
--- NOTE | 2020-03-27 19:10 | NUR ---
REPORT GIVEN TO OLGA MERRITT FOR CONTINUITY OF CARE
[2020-03-27] MEDS ORDERED: ONDANSETRON 4 MG ODT PO ONE (19:15)
[2020-03-27] MEDS ORDERED: HYDROcodone/APAP 7.5/325 MG 1 TAB PO ONE (19:15)
[2020-03-27 20:04] VITALS: BP 150/90
--- NOTE | 2020-03-27 20:04 | NUR ---
Patient discharged with v/s stable. Written and verbal after care instructions given and explained. Patient alert, oriented and verbalized understanding of instructions. Ambulatory with steady gait. All questions addressed prior to discharge. ID band removed. Patient advised to follow up with PMD. Rx of MEDROL, LIDODERM TRANSDERMAL PATCH, AND NORCO given. Patient educated on indication of medication including possible reaction and side effects. Opportunity to ask questions provided and answered.
== END 2020-03-27 20:04 | disposition home or self-care (01) ==
LOC: MED 18:08
DX: M54.5 Low back pain (principal); I10 Essential (primary) hypertension; K21.9 Gastro-esophageal reflux disease without esophagitis; Z88.6 Allergy status to analgesic agent; Z79.899 Other long term (current) drug therapy
CPT/HCPCS: 81002; 81025; 82948; 99283; Q0162

== ENCOUNTER 2020-07-19 14:55 | Emergency (ER) | payer MEDICAID ==
[~2020-07-19] VITALS: Ht 152.4 cm; Wt 88.9 kg
[2020-07-19 15:22] VITALS: BP 163/105
--- NOTE | 2020-07-19 15:30 | NUR ---
8/10 L SHOULDER PAIN AFTER INJURING HERSELF MEDS. TYLENOL AT 1000 WITH NO RELIEF OF SYMPTOMS. MED HX: H-PYLORI ALLERGIES TO IBUPROFEN
[2020-07-19] MEDS ORDERED: HYDROcodone/APAP 5/325 MG 1 TAB TAB PO ONE (15:45)
[2020-07-19 16:58] VITALS: BP 163/105
== END 2020-07-19 16:58 | disposition home or self-care (01) ==
LOC: MED 14:55
DX: M25.512 Pain in left shoulder (principal); K21.9 Gastro-esophageal reflux disease without esophagitis; Z90.49 Acquired absence of other specified parts of digestive tract; Z98.890 Other specified postprocedural states; Z79.899 Other long term (current) drug therapy; Z88.6 Allergy status to analgesic agent
CPT/HCPCS: 99283

== ENCOUNTER 2021-04-12 10:03 | Emergency (ER) | payer MEDICAID ==
[~2021-04-12] VITALS: Ht 152.4 cm; Wt 81.6 kg
[~2021-04-12 10:03] MED LIST changes: +AMIT25TA39 PO; -ELA25 PO
[2021-04-12 10:07] VITALS: BP 174/111
[2021-04-12] MEDS ORDERED: AMOX-1000 PO (11:30)
[2021-04-12] MEDS ORDERED: COL100L OT (11:30)
--- NOTE | 2021-04-12 11:59 | NUR ---
Patient discharged with v/s stable BY DR POTTER. Written and verbal after care instructions given and explained. NO NURSING INTERVENTIONS RENDERED. Patient alert, oriented and verbalized understanding of instructions. Ambulatory with steady gait. All questions addressed prior to discharge. ID band removed. Patient advised to follow up with PMD. Rx of AMOXICILLIN AND COLACE given. Patient educated on indication of medication including possible reaction and side effects. Opportunity to ask questions provided and answered.
== END 2021-04-12 11:59 | disposition home or self-care (01) ==
LOC: MED 10:03
DX: H61.21 Impacted cerumen, right ear (principal); H92.01 Otalgia, right ear
CPT/HCPCS: 99283

== ENCOUNTER 2022-10-26 18:05 | Emergency (ER) | payer MEDICAID ==
[~2022-10-26] VITALS: Ht 152.4 cm; Wt 97.1 kg
[~2022-10-26 18:05] MED LIST changes: +AMOX-1000 PO; +DOCU50LI8 OT; +OMEP-303 PO; -OMEP20TC10 PO
[2022-10-26 18:09] VITALS: BP 165/104
[2022-10-26] MEDS ORDERED: LISI-486 PO (19:13)
[2022-10-26] MEDS ORDERED: diphenhydrAMINE 50 MG/ML VIAL IVP ONE (19:15)
[2022-10-26] MEDS ORDERED: NACL 0.9% 1,000 ML IV ONE (19:15)
[2022-10-26] MEDS ORDERED: METOCLOPRAMIDE 10 MG/2 ML INJ VIAL IVP ONE (19:15)
--- NOTE | 2022-10-26 20:14 | NUR ---
HANDOFF GIVEN TO RENÉ PLAZA, [place] OF CARE AT THIS TIME.
--- NOTE | 2022-10-26 20:30 | NUR ---
RECEIVED IN BED 11 WITH C/O HEADACHE. "I'VE HAD A LOT OF STRESS" IV BOLUS INFUSING AT THIS TIME. ASSISTED WITH POSITIONING FOR COMFORT
[2022-10-26 21:25] VITALS: BP 165/104
--- NOTE | 2022-10-26 21:25 | NUR ---
Patient discharged with v/s stable. Written and verbal after care instructions given and explained. Patient alert, oriented and verbalized understanding of instructions. Ambulatory with steady gait. All questions addressed prior to discharge. ID band removed. Patient advised to follow up with PMD. Rx of ZESTRIL given. Patient educated on indication of medication including possible reaction and side effects. Opportunity to ask questions provided and answered.
== END 2022-10-26 21:25 | disposition home or self-care (01) ==
LOC: MED 18:05
DX: G43.909 Migraine, unspecified, not intractable, without status migrainosus (principal); I10 Essential (primary) hypertension; K21.9 Gastro-esophageal reflux disease without esophagitis; Z79.1 Long term (current) use of non-steroidal anti-inflammatories (NSAID); Z79.899 Other long term (current) drug therapy; Z90.49 Acquired absence of other specified parts of digestive tract
CPT/HCPCS: 96361; 96374; 96375; 99284; J1200; J2765